=== PATIENT | male | born 1960 | race Caucasian/White ===

== ENCOUNTER → 2016-08-08 | Outpatient (CLI) | payer OTHER ==
[~2016-08-08] MED LIST: CIPRO500 MG PO; FLOMAX0.4 MG PO; LISINOPRIL5 MG PO; LYRICA100 MG PO; METFORMIN 500500 MG PO; METFORMIN HCL500 MG PO; MINOCYCLINE 5050 M1 PO; MOBIC15 MG PO; OXYCONTIN10 M1 PO; PERCOCET PO
== END ==
LOC: HYPER 07:05
DX: E11.621 Type 2 diabetes mellitus with foot ulcer (principal); L97.512 Non-pressure chronic ulcer of other part of right foot with fat layer exposed; L89.613 Pressure ulcer of right heel, stage 3; E11.622 Type 2 diabetes mellitus with other skin ulcer; L97.822 Non-pressure chronic ulcer of other part of left lower leg with fat layer exposed; L97.423 Non-pressure chronic ulcer of left heel and midfoot with necrosis of muscle; I87.2 Venous insufficiency (chronic) (peripheral); I10 Essential (primary) hypertension; Z79.84 Long term (current) use of oral hypoglycemic drugs; Z87.891 Personal history of nicotine dependence

== ENCOUNTER → 2016-08-23 | Outpatient (CLI) | payer OTHER | LOC: HYPER 07:08 | DX: E11.621 Type 2 diabetes mellitus with foot ulcer (principal); L97.821 Non-pressure chronic ulcer of other part of left lower leg limited to breakdown of skin; L97.421 Non-pressure chronic ulcer of left heel and midfoot limited to breakdown of skin; L97.511 Non-pressure chronic ulcer of other part of right foot limited to breakdown of skin; E11.69 Type 2 diabetes mellitus with other specified complication; I87.2 Venous insufficiency (chronic) (peripheral); Z79.84 Long term (current) use of oral hypoglycemic drugs; Z87.891 Personal history of nicotine dependence ==

== ENCOUNTER → 2016-11-13 | Outpatient (CLI) | payer OTHER | LOC: HYPER 07:05 | DX: E11.621 Type 2 diabetes mellitus with foot ulcer (principal); L97.512 Non-pressure chronic ulcer of other part of right foot with fat layer exposed; L89.893 Pressure ulcer of other site, stage 3; L02.416 Cutaneous abscess of left lower limb; I87.2 Venous insufficiency (chronic) (peripheral); I10 Essential (primary) hypertension; Z79.84 Long term (current) use of oral hypoglycemic drugs; Z89.411 Acquired absence of right great toe; Z87.891 Personal history of nicotine dependence ==

== ENCOUNTER → 2017-01-07 | Outpatient (CLI) | payer OTHER | LOC: HYPER 12-25 07:42 | DX: E11.621 Type 2 diabetes mellitus with foot ulcer (principal); I87.2 Venous insufficiency (chronic) (peripheral); L97.512 Non-pressure chronic ulcer of other part of right foot with fat layer exposed; L97.423 Non-pressure chronic ulcer of left heel and midfoot with necrosis of muscle; L89.893 Pressure ulcer of other site, stage 3; I10 Essential (primary) hypertension; Z79.84 Long term (current) use of oral hypoglycemic drugs; Z87.891 Personal history of nicotine dependence; Z89.411 Acquired absence of right great toe ==

== ENCOUNTER → 2017-04-30 | Outpatient (CLI) | payer OTHER | LOC: HYPER 04-29 13:41 | DX: E11.621 Type 2 diabetes mellitus with foot ulcer (principal); L97.512 Non-pressure chronic ulcer of other part of right foot with fat layer exposed; L89.893 Pressure ulcer of other site, stage 3; I87.2 Venous insufficiency (chronic) (peripheral); I10 Essential (primary) hypertension; Z79.84 Long term (current) use of oral hypoglycemic drugs; Z87.891 Personal history of nicotine dependence ==

== ENCOUNTER → 2017-05-02 | Outpatient (CLI) | payer OTHER ==
[2017-05-02 16:45] LABS: HEMATOCRIT 45.1 % (42.0-52.0); HEMOGLOBIN 15.2 gm/dL (14.0-18.0); MCH 30.2 pg (26.0-34.0); MCHC 33.6 g/dL (28.0-37.0); MCV 89.9 fL (80.0-100.0); RBC 5.02 mil/uL (4.50-6.00); RDW 13.3 % (10.5-14.5); WBC 10.7 thou/uL (4.0-11.0)
[2017-05-02 16:56] LABS: CALCIUM 9.1 mg/dL (8.5-10.1); CREATININE 1.1 mg/dL (0.7-1.3); POTASSIUM 4.5 mmol/L (3.5-5.1)
[2017-05-02 17:02] LABS: ALBUMIN 3.8 g/dL (3.4-5.0); TOTAL BILIRUBIN 0.5 mg/dL (<0.1-1.0); TOTAL PROTEIN 7.9 g/dL (6.4-8.2)
== END ==
LOC: HYPER 11:54 → RAD 12:50
PROVIDERS: Emergency Medicine Emergency Medical Services
DX: E11.621 Type 2 diabetes mellitus with foot ulcer (principal); I87.2 Venous insufficiency (chronic) (peripheral); L97.512 Non-pressure chronic ulcer of other part of right foot with fat layer exposed; E11.69 Type 2 diabetes mellitus with other specified complication; Z79.84 Long term (current) use of oral hypoglycemic drugs; Z87.891 Personal history of nicotine dependence

== ENCOUNTER → 2018-05-15 | Outpatient (CLI) | payer OTHER | LOC: HYPER 06:33 | DX: E11.621 Type 2 diabetes mellitus with foot ulcer (principal); L97.512 Non-pressure chronic ulcer of other part of right foot with fat layer exposed; I87.2 Venous insufficiency (chronic) (peripheral); L84 Corns and callosities; I10 Essential (primary) hypertension; Z89.411 Acquired absence of right great toe; Z79.84 Long term (current) use of oral hypoglycemic drugs; Z87.891 Personal history of nicotine dependence ==

== ENCOUNTER → 2018-06-12 | Outpatient (CLI) | payer OTHER | LOC: HYPER 07:08 | DX: T87.89 Other complications of amputation stump (principal); E11.621 Type 2 diabetes mellitus with foot ulcer; L97.512 Non-pressure chronic ulcer of other part of right foot with fat layer exposed; S90.221A Contusion of right lesser toe(s) with damage to nail, initial encounter; I87.2 Venous insufficiency (chronic) (peripheral); I10 Essential (primary) hypertension; Z79.84 Long term (current) use of oral hypoglycemic drugs; Z87.891 Personal history of nicotine dependence; X58.XXXA Exposure to other specified factors, initial encounter; Y93.89 Activity, other specified; Y92.89 Other specified places as the place of occurrence of the external cause; Y99.8 Other external cause status; Y83.5 Amputation of limb(s) as the cause of abnormal reaction of the patient, or of later complication, without mention of misadventure at the time of the procedure ==

== ENCOUNTER → 2018-09-08 | Outpatient (CLI) | payer OTHER | LOC: HYPER 08-07 06:46 | DX: E11.621 Type 2 diabetes mellitus with foot ulcer (principal); L97.526 Non-pressure chronic ulcer of other part of left foot with bone involvement without evidence of necrosis; L97.512 Non-pressure chronic ulcer of other part of right foot with fat layer exposed; S91.104D Unspecified open wound of right lesser toe(s) without damage to nail, subsequent encounter; S90.821D Blister (nonthermal), right foot, subsequent encounter; I10 Essential (primary) hypertension; I87.2 Venous insufficiency (chronic) (peripheral); Z79.84 Long term (current) use of oral hypoglycemic drugs; Z87.891 Personal history of nicotine dependence; Z89.419 Acquired absence of unspecified great toe; X58.XXXD Exposure to other specified factors, subsequent encounter ==

== ENCOUNTER → 2018-10-14 | Outpatient (CLI) | payer OTHER | LOC: HYPER 06:53 | DX: E11.621 Type 2 diabetes mellitus with foot ulcer (principal); L97.522 Non-pressure chronic ulcer of other part of left foot with fat layer exposed; L97.512 Non-pressure chronic ulcer of other part of right foot with fat layer exposed; E11.40 Type 2 diabetes mellitus with diabetic neuropathy, unspecified; I87.2 Venous insufficiency (chronic) (peripheral); L84 Corns and callosities; I10 Essential (primary) hypertension; Z87.891 Personal history of nicotine dependence; Z79.84 Long term (current) use of oral hypoglycemic drugs ==

== ENCOUNTER → 2018-11-10 | Outpatient (CLI) | payer OTHER | LOC: HYPER 06:50 | DX: E11.621 Type 2 diabetes mellitus with foot ulcer (principal); L97.522 Non-pressure chronic ulcer of other part of left foot with fat layer exposed; L97.512 Non-pressure chronic ulcer of other part of right foot with fat layer exposed; I87.2 Venous insufficiency (chronic) (peripheral); I10 Essential (primary) hypertension; L84 Corns and callosities; Z87.891 Personal history of nicotine dependence; Z79.84 Long term (current) use of oral hypoglycemic drugs ==

== ENCOUNTER → 2018-12-15 | Outpatient (CLI) | payer OTHER | LOC: HYPER 06:42 | DX: E11.621 Type 2 diabetes mellitus with foot ulcer (principal); L97.512 Non-pressure chronic ulcer of other part of right foot with fat layer exposed; L97.522 Non-pressure chronic ulcer of other part of left foot with fat layer exposed; S90.22 Contusion of lesser toe with damage to nail; I87.2 Venous insufficiency (chronic) (peripheral); I10 Essential (primary) hypertension; Z87.891 Personal history of nicotine dependence; Z79.84 Long term (current) use of oral hypoglycemic drugs; X58.XXXD Exposure to other specified factors, subsequent encounter ==

== ENCOUNTER → 2019-01-19 | Outpatient (CLI) | payer OTHER | LOC: HYPER 06:45 | DX: T87.89 Other complications of amputation stump (principal); E11.621 Type 2 diabetes mellitus with foot ulcer; L97.522 Non-pressure chronic ulcer of other part of left foot with fat layer exposed; L97.512 Non-pressure chronic ulcer of other part of right foot with fat layer exposed; E11.40 Type 2 diabetes mellitus with diabetic neuropathy, unspecified; I87.2 Venous insufficiency (chronic) (peripheral); L84 Corns and callosities; I10 Essential (primary) hypertension; Z87.891 Personal history of nicotine dependence; Z79.84 Long term (current) use of oral hypoglycemic drugs; Y83.5 Amputation of limb(s) as the cause of abnormal reaction of the patient, or of later complication, without mention of misadventure at the time of the procedure ==

== ENCOUNTER → 2019-02-23 | Outpatient (CLI) | payer OTHER | LOC: HYPER 02-16 06:29 | DX: E11.621 Type 2 diabetes mellitus with foot ulcer (principal); L97.512 Non-pressure chronic ulcer of other part of right foot with fat layer exposed; L97.522 Non-pressure chronic ulcer of other part of left foot with fat layer exposed; I87.2 Venous insufficiency (chronic) (peripheral); I10 Essential (primary) hypertension; L84 Corns and callosities; Z87.891 Personal history of nicotine dependence; Z79.84 Long term (current) use of oral hypoglycemic drugs; Z89.411 Acquired absence of right great toe ==

== ENCOUNTER 2019-08-18 16:42 | Inpatient (IN) | payer OTHER ==
[~2019-08-18] VITALS: Ht 177.8 cm; Wt 100.2 kg
[~2019-08-18 16:42] MED LIST changes: -MELOXICAM15 MG PO; -PERCOCET 10-321 EAC1 PO
[2019-08-18 17:11] VITALS: BP 121/51
[2019-08-18] MEDS ORDERED: PERCOCET 10-321 EAC1 PO (18:32)
[2019-08-18] MEDS ORDERED: MELOXICAM15 MG PO (18:35)
--- NOTE | 2019-08-18 20:07 | NUR ---
[address] Tom, pt arrived via wheelchair- transferred to bed safely. Dr Tom called re: pt's arrival in herzog- a/w orders, no reply. Medication reconcilation done, a/w physician to review medications. Admission education, history and assessment done. Wound photo taken, attached to chart; wound dressing done. Up ad du. Independent with ADLs. On room air. Vital signs stable. Diet ordered as carb controlled while waiting for physician's order sets. Paged Dr Tom again to obtain orders, still no reply. Pt had a bowel movement today, continent of urine and stool, call appropriately. Paged Dr Tom again to obtain admission orders for patient, still no reply. airplane flight attendant supervisor informed re: no admission orders from physician and patient
[2019-08-18 20:42] VITALS: BP 144/83
[2019-08-18 20:52] LABS: HEMATOCRIT 42.9 % (42.0-52.0); HEMOGLOBIN 14.1 gm/dL (14.0-18.0); MCH 30.4 pg (26.0-34.0); MCHC 32.8 g/dL (28.0-37.0); MCV 92.7 fL (80.0-100.0); PLATELET COUNT 206 thou/uL (150-400); RBC 4.63 mil/uL (4.50-6.00); RDW 14.2 % (10.5-14.5); WBC 5.1 thou/uL (4.0-11.0)
[2019-08-18 21:12] LABS: APTT 40.9 Seconds (24.5-32.8); INR 1.1; PROTIME 11.3 Seconds (9.3-11.4)
[2019-08-18 21:32] LABS: ALBUMIN 3.3 g/dL (3.4-5.0); CALCIUM 8.8 mg/dL (8.5-10.1); CREATININE 1.3 mg/dL (0.7-1.3); MAGNESIUM 2.1 mg/dL (1.8-2.4); POTASSIUM 3.9 mmol/L (3.5-5.1); TOTAL BILIRUBIN 0.2 mg/dL (<0.1-1.0); TOTAL PROTEIN 7.2 g/dL (6.4-8.2)
[2019-08-18 21:47] LABS: ABSOLUTE NEUTROPHILS 3.5 thou/uL (1.4-8.2)
[2019-08-18 21:48] LABS: PLATELET ESTIMATE NORMAL
--- NOTE | 2019-08-19 03:43 | NUR ---
patient aox4 makes needs known.patient has right leg dressing c/d/i. patient has skin grafts on ble. patient is up at du. patient uses urinal.patient has been npo sinces midnight. patient ua collected and taken to lab, awaiting for results. pain controlled this shift. patient in bed asleep at this time breathing regular and unlaboured.
[2019-08-19 05:44] LABS: HEMATOCRIT 44.2 % (42.0-52.0); HEMOGLOBIN 14.4 gm/dL (14.0-18.0); MCHC 32.6 g/dL (28.0-37.0); MCV 92.1 fL (80.0-100.0); PLATELET COUNT 230 thou/uL (150-400); RDW 14.1 % (10.5-14.5); WBC 5.8 thou/uL (4.0-11.0)
[2019-08-19 05:53] LABS: CALCIUM 8.6 mg/dL (8.5-10.1); MAGNESIUM 2.1 mg/dL (1.8-2.4); POTASSIUM 4.4 mmol/L (3.5-5.1)
[2019-08-19 07:59] VITALS: BP 139/80
[2019-08-19 08:40] LABS: ABSOLUTE NEUTROPHILS 4.4 thou/uL (1.4-8.2); PLATELET ESTIMATE NORMAL
--- NOTE | 2019-08-19 09:17 | NUR ---
Nutrition: pt admitted with cellulitis right foot with underlying hx of pyoderma. PMH: DM, right toes amputation, HTN. BG 112. Currently NPO for possible procedure, carb controlled diet yesterday. Pt reports good BG control and no diet related questions. States last A1C 6.0. Good appetite. Drinks 1-2 Premier protein daily at home, aware of protein needs/sources. Will offer Ensure max once daily when diet advances. Stable weight. Low nutrition risk.
--- NOTE | 2019-08-19 10:31 | NUR ---
ORDERS RECEIVED FOR EVAL AND TREAT. PER NURSING NOTES THE Pt IS UP AD JIMMY. SPOKE WITH Pt WHO STATES HE IS HAVING NO DIFFICULTY WITH HIS MOBILITY, DOES NOT FEEL WEAK OR OFF BALANCE. Pt DECLINING FORMAL P.T. EVAL
--- NOTE | 2019-08-19 11:55 | NUR ---
PT ADMITTED RELATED TO CELLULITIS R FOOT. CM REVIEWED CHART AND SPOKE WITH CARE TEAM. CM MET WITH PT AT BEDSIDE THIS DAY. PT IS A&O X4. CM ROLE INTRODUCED. PT INDICATED HE LIVES IN A HOUSE WITH HIS SPOUSE WITH 2 STEPS TO ENTER AND NO STEPS INSIDE. 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 PT INDICATED HE HAD [facility] IN THE PAST BUT THAT HE HAD BEEN DOING OP WOUND CARE HERE IN [facility] CONTRACT PROJECT MANAGER. PT INDICATED THAT HE HOPES TO BE ABLE TO RETURN HOME ONCE MEDICALLY STABLE. CM TO FOLLOW INDICATED WITH DC PLANNING.
--- NOTE | 2019-08-19 12:40 | NUR ---
WOUND CARE NOTE ROUNDING W/ DR ASHUTOSH FOWLER, R FOOT WOUND ASSESSED, NONVIABLE WHITE TISSUE C[facility] OF WOUND BED, PHOTO DONE YESTERDAY, AWAITING RECOMMENDATIONS DR THOMAS POSSIBLE SURGERY RECOMMENDATIONS AWAITING ORTHO SURGERY CONSULT, MRI, REDRESSED W/ DRY GAUZE, [facility] RECRUITER AWARE
--- NOTE | 2019-08-19 13:55 | NUR ---
PATIENT DECLINED FORMAL OT EVALUATION, PATIENT STATED HE AND WITH HIS 'S ASSIST AND STATED HE DOES NOT WANT TO CHANGE IT OR RECEIVE INPUT.
[2019-08-19 15:00] VITALS: BP 157/83
--- NOTE | 2019-08-19 16:53 | NUR ---
Assumed care to patient 0910 from the previous shift. Received pt awake on bed, due medications given as prescribed. On nothing per orem- pt informed and aware, mouth care rendered. On room air. Vital signs stable. On blood sugar monitoring, with sliding scale insulin prescribed. Assisted in ADLs. Continent of B/B. Pt seen by Dr Christianson this morning, MRI of R foot ordered, MRI checklist completed and sent. MRI staff called and said MRI undergoing maintenance- Dr Hahn, Dr Christianson and Answering service for Dr Cook informed, pt updated as well. Dr Christianson called and said he was able to contact Dr Biswas and said to keep patient on NPO- patient updated. Pt's called and got upset because pt is still on NPO, explained to her what the physician has been telling me and informed her that patient has been updated about everything is happening. Dressing on R foot changed by wound team during their rounds this AM. Dr Cook seen and assessed the patient, talked to physician as well and upset since no imaging has been done yet they put pt on NPO, diet resumed for the patient, dietary brought a late tray to patient and updated him re: physician's orders. Dr Cook informed again that the earliest MRI could be done is tomorrow due to maintainance, Xray of foot ordered. 1648- Called radiology re: update for xray to be done, as per xray staff they will be checking orders and will call back. Pt with NS at 75cc/hr, infusing well at R hand, on IV antibiotics. Tolerated lunch; no nausea, no vomiting and no abdominal pain noted.
[2019-08-19 19:44] VITALS: BP 154/74
--- NOTE | 2019-08-20 01:27 | NUR ---
PATIENT AOX4 MAKES NEEDS MADE.PATIENT HAS RLE CELLULITIS, PATIENT HAS A DRESSING ON RIGHT FOOT IS C/D/I. PAIN CONTROLLED THIS SHIFT. PATIENT IS UP AT JIMMY. PATIENT IN BED ASLEEP AT THIS TIME BREATHING REGULAR AND UNLABOURED.
[2019-08-20 08:46] VITALS: BP 127/59
--- NOTE | 2019-08-20 10:23 | HC ---
[facility] [place] [address] CONSULTATION Name: ACNA KOEHLER Room #: 455-P ADM IN M.R.#: [id number] Admission: 08/18/19 Attend Phys: Josh Hahn Discharge: Date of : 58 Report #: [id number] THIS REPORT FOR: //name// CC: Josh Chopraen Chela DATE OF SERVICE: 08/19/2019 CHIEF COMPLAINT: Right forefoot infection. HISTORY OF PRESENT ILLNESS: This 59-year-old gentleman has a long history of severe vascular and soft tissue problems involving the right foot. He has had debridement and skin grafts in the lower leg and calf region. He has had previous surgical debridement and amputation of the great toe and I believe some portions of the second toe in the past. He notes he has been seen regularly at the [facility]. He notes a chronic callus formation over the plantar aspect of the forefoot. 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 He notes he has had problems with callus formation and does regular callus trimming on his own at home. He also was seen at [facility] for custom shoe wear to help to avoid pressure sores. Unfortunately, after trimming a callus one week ago, he developed a small open wound, which advanced to redness and swelling consistent with cellulitis. He has been seen at the W[facility] Care Clinic and has been started on antibiotics. I am uncertain with regard to culture results. He is admitted at this time for IV antibiotics. At the time of my evaluation, there is not a note for wound care on the chart, so I am uncertain of his recent history. I do not find any x-rays of the foot. I note that an MRI has been ordered, but the MRI machine is currently unavailable or not working and so that may take another 24-48 hours before we get that study. In discussing this with the patient, he notes that he is only mildly uncomfortable. He feels his symptoms may be improving slightly since he has been off the foot and has been started on IV antibiotics. The right foot reveals previous amputation of the great toe with some deformity at the distal metatarsal level. He seems to still have remaining third, fourth and fifth toes. I believe he has had a previous amputation of the second toe, but there is significant deformity in this region. There is a bony prominence at the plantar aspect, which seems to be at the second metatarsal head region. There appears to be an old callus there, which has been recently trimmed and a small wound. There is no obvious purulence, but there is some redness or warmth consistent with cellulitis. [address] [address] CONSULTATION Name: ANCA KOEHLER Room #: 455-P ADM IN M.R.#: [id number] Admission: 08/18/19 Attend Phys: Josh Hahn Discharge: Date of : 58 Report #: [id number] At this point, based upon the clinical exam, I suspect he does have significant problems with chronic pressure sores given the bony prominence at the second metatarsal head. Currently, he has a small wound with surrounding cellulitis. There is no clinical evidence of deep abscess or osteomyelitis, but I think further evaluation with both x-rays and MRI would be appropriate. We have discussed that the current infection may be managed with IV antibiotics and the rest, elevation. In the long run, he is going to have ongoing problems with callus formation, pressure sores, eventually some revision of his forefoot amputation may be necessary to try to prevent further bony prominence and soft tissue damage. Certainly if the MRI shows evidence of current osteomyelitis, then a more aggressive debridement might be necessary. For now, I suspect this is not an osteomyelitis, but rather a cellulitis and will probably improve with time and elevation and antibiotics. I will follow along with you and we will comment further once we have x-rays and MRI available for review. <ELECTRONICALLY SIGNED> By: Avelino Cook MD 08/20/19 1023 1310 2116 Avelino Cook MD /nt
--- NOTE | 2019-08-20 12:41 | NUR ---
ORTHO INDICATED THAT THEY ANTICIPATE PT GOING TO THE OR TOMORROW FOR POSSIBLE MID FOOT AMPUTATION. CM TO FOLLOW INDICATED WITH DC PLANNING.
[2019-08-20 14:31] VITALS: BP 116/60
--- NOTE | 2019-08-20 14:35 | HC ---
[facility] [place] [address] CONSULTATION Name: RODOANCA D Room #: 455-P ADM IN M.R.#: [id number] Admission: 08/18/19 Attend Phys: Josh Hahn Discharge: Date of : 58 Report #: [id number] THIS REPORT FOR: //name// CC: Josh York DATE OF SERVICE: 08/19/2019 WOUND CARE CONSULTATION REFERRING PHYSICIAN: Dr. Tom. CHIEF COMPLAINT: Diabetic foot ulcer. HISTORY OF PRESENT ILLNESS: This is a 59-year-old white male who I have been following in the wound clinic for chronic ulcer on the plantar aspect of his right foot over the second metatarsal head. The patient states that over the past several months, the wound had actually been doing quite well, but unfortunately in just the past week, he started having increased swelling, redness, drainage coming from the wound. The patient states the night before admission, the patient actually was having fevers and chills. The patient states that because of his neuropathy, he has minimal pain associated with this. The patient states that once he started the increased drainage. He started himself on Baxdela antibiotic that he has been on intermittently for the past several months. The patient denies any other associated wounds at this time. It was felt that due to the increased drainage and swelling and on clinical exam, his wound probed to bone, the patient should be admitted for IV antibiotics, imaging of the foot to rule out an abscess and further evaluation by Infectious Disease as well as Orthopedics. PAST MEDICAL HISTORY: Significant for longstanding diabetes mellitus, previous surgery on the right foot including a right great and second toe amputation as well as surgical revision, chronic arthritis, history of pyoderma gangrenosum remotely, hypertension. The patient has chronic back pain with chronic pain issues. CURRENT MEDICATIONS: Multiple, I reviewed the patient's medication list, does include Lyrica. DRUG ALLERGIES: NEOMYCIN AND BACTRIM. SOCIAL HISTORY: The patient has a remote history of smoking. Does not drink alcohol. FAMILY HISTORY: Not pertinent to current medical condition. [facility] [address] [place] [address] CONSULTATION Name: ANCA KOEHLER Room #: 455-P [facility] IN ..#: [id number] Admission: 08/18/19 Attend Phys: Josh Hahn Discharge: Date of : 58 Report #: [id number] REVIEW OF SYSTEMS: CONSTITUTIONAL: The patient had fevers and chills prior to coming into the hospital, but denies any in the past 24 hours. EYES: No complaints. ENT: No complaints. CARDIAC: The patient denies chest pain, palpitations, or peripheral edema. RESPIRATORY: The patient denies shortness of breath, cough, or wheezes. GASTROINTESTINAL: The patient denies nausea, vomiting, or abdominal pain. GENITOURINARY: The patient denies urgency or frequency. MUSCULOSKELETAL: The patient has chronic back pain. SKIN: There is a chronic ulceration on the plantar aspect of his right foot. PHYSICAL EXAMINATION: VITAL SIGNS: Temperature 37.3, pulse 51, respirations 18, and BP 154/74. GENERAL: This is an alert and oriented x 3, pleasant white male who is in no obvious distress. HEENT: Normocephalic, atraumatic. Mucous membranes are moist. Pupils are round. Sclerae white. NECK: Supple, nontender. LUNGS: Clear. HEART: Regular. ABDOMEN: Soft, nontender. EXTREMITIES: The patient moves all extremities without difficulty. Distal pulses are otherwise intact. Evaluation of the plantar aspect of right foot reveals a chronic ulceration over the second metatarsal head, which probes to bone. There moderate amount of bloody drainage, but no actual pus. There is increased swelling of the foot itself, which is tender along the plantar aspect without actual fluctuance. The area does have mild warmth and increased erythema. NEUROLOGIC: Cranial nerves 2-12 grossly intact. Motor and sensory grossly intact. LABORATORY DATA: White count 5.1, hemoglobin 14.1. Albumin is 3.3. MRI of the foot is pending. X-ray of the right foot reveals extensive soft tissue swelling in the forefoot. Post-surgical changes are noted. MRI is recommended for evaluation of osteomyelitis. MRI once again is pending. IMPRESSION: 1. Chronic ulceration, plantar aspect of right foot over the metatarsal head, concerning for underlying osteomyelitis and possible abscess. 2. Diabetes mellitus. 3. Remote history of pyoderma gangrenosum. 4. Chronic back pain with chronic opioid usage. 5. Protein-calorie malnutrition -- mild. Albumin 3.3. PLAN: At this time, Orthopedics has been consulted as is the wound care team. [address] [address] CONSULTATION Name: ANCA KOEHLER Room #: 455-P [facility] IN M.R.#: [id number] Admission: 08/18/19 Attend Phys: Josh Hahn Discharge: Date of : 58 Report #: [id number] We will continue to follow the patient. We will pack the wound with silver alginate, covers this with an ABD. An MRI once again has been ordered and is pending. IV antibiotics have been started, vancomycin and Zosyn. We will continue with his pain medicines as per his home regimen. We will maximize his oral protein supplementation for continued healing. Continue all his other current medications and continue to follow the patient. <ELECTRONICALLY SIGNED> By: Joseph Christianson MD 08/20/19 1435 0802 0825 Joseph Christianson MD /chelo
[2019-08-20 19:22] VITALS: BP 125/73
--- NOTE | 2019-08-20 19:50 | NUR ---
PT HAD MRI THIS AM. WILL HAVE SURGERY 08/[address] HERRING. TO BE NPO AT MIDNIGHT TONIGHT. PT UP AD JIMMY IN ROOM. DRESSING CHANGE COMPLETE. IV FLUIDS AND ABX INFUSING. AT BEDSIDE THROUGH OUT THE DAY.
[2019-08-21 00:42] VITALS: BP 114/64
[2019-08-21 05:08] LABS: HEMOGLOBIN 14.4 gm/dL (14.0-18.0); MCH 30.1 pg (26.0-34.0); MCHC 32.6 g/dL (28.0-37.0); MCV 92.2 fL (80.0-100.0); RBC 4.77 mil/uL (4.50-6.00); RDW 14.6 % (10.5-14.5); WBC 5.2 thou/uL (4.0-11.0)
[2019-08-21 05:22] LABS: CALCIUM 8.4 mg/dL (8.5-10.1); PHOSPHORUS 3.9 mg/dL (2.5-4.9)
--- NOTE | 2019-08-21 06:26 | NUR ---
PT AOX4. PT REPORTS PAIN IN RIGHT FOOT. PT RECEIVING SCHEDULED PO OXY, PRN IV MORPHINE Q4HR, AND PRN PO APAP Q4HR. PT PREFERS TO REST IN RECLINING CHAIR. STBA WHEN AMBULATING AND TRANSFERRING. PT TOLERATED PO INTAKE UNTIL MIDNIGHT, NPO AT 0000 DUE TO ANTICIPATION OF AMPUTATION SURGERY. PT , RATNA AT BEDSIDE. ENCOURAGED PT AND PT TO NOTIFY STAFF FOR ALL NEEDS. CALL LIGHT WITHIN REACH. WILL CONTINUE TO MONITOR.
[2019-08-21 07:27] VITALS: BP 102/66
[2019-08-21 12:09] VITALS: BP 110/51
--- NOTE | 2019-08-21 12:11 | O ---
[facility] [place] [address] OPERATIVE REPORT Name: ORDOANCA Estela Room #: 455-P ADM IN M.R.#: [id number] Admission: 08/18/19 Attend Phys: Josh Hahn Discharge: Date of : 58 Report #: [id number] THIS REPORT FOR: //name// CC: Josh Chopraen Chela DATE OF SERVICE: 08/21/2019 PREOPERATIVE DIAGNOSIS: Infected right forefoot with osteomyelitis. POSTOPERATIVE DIAGNOSIS: Infected right forefoot with osteomyelitis. PROCEDURE: Mid foot amputation, right foot. 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 He has had chronic problems with lower extremity vascular and soft tissue disease. He has a history of pyoderma gangrenosum. He has had multiple partial amputations of the right foot in the past. Recently, he has developed increased drainage and MRI suggest osteomyelitis of several of the remaining metatarsals. There was no evidence of an abscess and the tarsal level appears to be intact and stable without significant involvement. Given these findings, we have elected to go ahead with a more proximal mid foot amputation at the tarsometatarsal joint level. DESCRIPTION OF PROCEDURE: The patient was taken to the operating room where he was placed under general anesthesia. He was already on an antibiotic regimen. The right lower leg, foot, and ankle were meticulously prepped and draped. A thigh tourniquet was inflated to 300 mmHg. A fishmouth shaped skin incision was made, preserving as much dorsal and plantar flap as possible. This was made at the level to exclude an area of callus and sinus tract drainage distally near the head of the second metatarsal. The dissection was then carried sharply down to bone and traced subperiosteally back along each of the metatarsals to their base. They were excised along with the remaining toes and soft tissues, which were passed off the field. The bone of the remaining tarsals particularly at the medial border was still rather prominent. These were shortened slightly with an oscillating saw and rounded to avoid any bony prominences. Once the bones were shaped and contoured, there appeared to be a very satisfactory stump with adequate soft tissue for loose gentle closure. The wound was aggressively irrigated. There was no evidence of purulence and no necrotic or devascularized tissue. The tourniquet was deflated. A very good blood supply throughout both the dorsal and plantar flap was noted. Hemostasis was accomplished with gentle use of cautery and gentle pressure over several minutes. The flaps were further copiously irrigated. I felt the wound seems clean and feel that a loose closure over a drain is probably an acceptable option. This was accomplished with a few [facility] [address] [place] [address] OPERATIVE REPORT Name: ANCA KOEHLER Room #: 455-P [facility] IN M.R.#: [id number] Admission: 08/18/19 Attend Phys: Josh Hahn Discharge: Date of : 58 Report #: [id number] loose 3-0 Monocryl sutures to close the space. A single Hemovac was placed to the wound, which should also help to close down the deeper space. The skin was then closed using skin mitzi and multiple 3-0 nylon sutures. A very satisfactory loose closure was accomplished. The wound appears to be dry at the conclusion without any ongoing significant bleeding. The skin edges, however, remained pink and well perfused. A soft, very gently compressive dressing was then applied. The patient was then awakened and returned to recovery room in good condition. <ELECTRONICALLY SIGNED> By: Avelino Cook MD 08/21/19 1211 1043 1112 Avelino Cook MD /nt
[2019-08-21 14:30] VITALS: BP 116/70
--- NOTE | 2019-08-21 15:25 | NUR ---
Received awake on bed. On nothing per orem- patient informed and aware, mouth care done. On room air. Vital signs stable. Assisted in ADLs. With dressing at R foot- C/D/I. With at the bedside. On blood sugar monitoring- taken and recorded accordingly. With NS at 75cc/hr, infusing well at R hand. Up ad du. Pt scheduled for R midfoot amputation- consent to be signed, asked the patient if surgeon has explained the procedure to him, pt said no- informed him that I will let OR staff know so surgeon can explain procedure to him prior to surgery. Report given to Pre-op nurse. Pt brought down via bed at 8:30am. Pt came back to herzog at 1300, transferred to bed safely. On clear liquids- beef broth and jello given. Patient complaining of 10/10 pain, recovery room nurse informed me pt received Fentanyl and Dilauded downstairs. PRN IV Morphine given as prescribed. Pt re-assessed- he said pt is still 10/10, no pain relief from pain meds given- Dr Christianson rounded on patient and ordered a one-time dose of 2mg Morphine, informed him that pt just had a 4mg dose 10mins ago, to still give medications. Pt is dozing on and off, patient's insisting that pt's pain scale is 10/10 rather that letting patient answer my pain relief assessment. Dr Hahn informed re: no pain relied, he modified patient's pain meds- pt informed and aware re: doctor's orders.
[2019-08-21 19:10] VITALS: BP 112/73
[2019-08-21 23:47] VITALS: BP 101/56
[2019-08-22 04:12] VITALS: BP 99/57
[2019-08-22 07:05] VITALS: BP 110/56
--- NOTE | 2019-08-22 07:27 | NUR ---
pt a&ox4. uses the urinal overnight. hemovac in place and patent. no output noted. pain controlled with current regimen. pt stated concern about being anxious and would like to have something for anxiety and melatonin for the coming nights if he does't get discharged today. reports off to day shift nurse. lisinipril held last night for low BP. no s/s of distress. right foot dressing dry clean and intact. will cont to monitor
--- NOTE | 2019-08-22 10:22 | NUR ---
Received awake on bed. Due medications given as prescribed, able to swallow meds w/o difficulty. On room air. Vital signs taken and recorded accordingly. A+Ox4. On carb controlled diet; tolerating well; no nausea, no vomiting and no abdominal pain noted. On blood sugar monitoring- taken and recorded accordingly; with insulin sliding scale prescribed. Continent of B/B. With at bedside. Post op Day 1 Rt midfoot amputation, dressing C/D/I- hemovac in place- output measured and recorded accordingly. Pt asked if he can resume his flomax, and have anti-anxiety and sleeping tablets prescribed- Dr Hahn informed, will see patient for prior to prescribing meds. With SL at L hand- intact and flushing well- on IV antibiotics.
[2019-08-22 14:39] VITALS: BP 122/47
[2019-08-22 19:29] VITALS: BP 100/58
--- NOTE | 2019-08-23 04:36 | NUR ---
Pt. rested quietly at intervals during the night when checked on during frequent rounds. Dressing to his right lower extremity is dry and intact. Hemovac to the site is also intact. Pain meds given for c/o pain to his right lower extremity (see emar) with some relief noted. Spouse at the bedside all shift.
[2019-08-23 08:00] VITALS: BP 142/64
--- NOTE | 2019-08-23 10:31 | EKG ---
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
[2019-08-23 15:00] VITALS: BP 152/69
--- NOTE | 2019-08-23 18:22 | NUR ---
PT A&OX4, VSS, PAIN IN RIGHT FOOT. PAIN MEDICATION GIVEN. FOOT REMAINS WRAPPED IN DRESSING, C/D/I. PATIENT TOLERATING REG DIET. HEMOVAC IN PLACE AND SMALL AMOUNT OF SEROSANGUINEOUS DRAINAGE TAKEN OFF. NO SIGNS OF DISTRESS. PATIENTS HR DID DROP DOWN TO 30 APPROX. 0900. DOCTOR AWARE AND EKG ORDERED. WILL CONTINUE TO MONITOR.
[2019-08-23 19:15] VITALS: BP 153/79
[2019-08-23 21:10] VITALS: BP 184/94
--- NOTE | 2019-08-23 22:55 | NUR ---
ASSUMED CARE AROUND 1915. AXOX3. HR 35 NOTED WHILE TAKING VS. FULL 60SEC AUSCULTATION PERFORMED AND HR35 CONFIRMED. PER PT, HE'S HAD HAS CHRONIC BRADYCARDIA, BUT IT HAS NOT BEEN IN THE 30s. CALLED TRUDI PRASAD AND OBTAINED AN ORDER TO TRANSFER PT TO CARDIAC MONITORING FLOOR. CALLED MANAGER PRIMARY RENATA, RECEIVED A ROOM NUMBER AND REPORT CALLED TO ROSY KING ON 2N. PT WAS TRANSFERRED ON BED IN SAFE CONDITION WITH MANAGER PRIMARY. ALL BELONINGS SENT WITH PT INCLUDING HIS BROWN WALLET. RATNA WAS CALLED AND NOTIFIED OF TRANSFER.
[2019-08-24 00:34] VITALS: BP 148/58
--- NOTE | 2019-08-24 03:01 | NUR ---
PT TX TO ROOM 209, DRESG CDI WITH HEMOVAC IN PLACE, VSS HR SB 40 TO 50'S DROPS TO 30'S OCCASIONALLY, PRN PAIN MED GIVEN, PT VOIDING PER URINAL, AWOKE TO USE URINAL AND PULLED OUT HEMOVAC, DRESSING REMAINS CDI, WILL CON'T TO MONITOR PER PPOC.
[2019-08-24 04:06] VITALS: BP 135/57
[2019-08-24 08:07] VITALS: BP 147/70
[2019-08-24] MEDS ORDERED: FLOMAX0.4 MG PO (09:04)
--- NOTE | 2019-08-24 11:07 | NUR ---
PT'S HR DOWN TO 35, PT NOT AWARE OF IT AND WHEN ASKED BY ME STATES, "BEEN LIKE THAT ALL OF MY LIFE." DR ARIAS CALLED AND RESPONDED, "IT'S FINE. HE'S ASYMPTOMATIC AND HIS BP IS FINE." PT'S IN ROOM AND CONFIRMED THAT HIS HEART RATE HAS "BEEN LOW EVER SINCE I'VE KNOWN HIM." SHE IS ALSO AWARE THAT HE MAY BE DISCHARGED TODAY AND SAYS SHE MAY NOT BE ABLE TO TRANSPORT HIM HOME UNTIL TOMORROW BECAUSE SHE NEEDS TO GET THE HOUSE READY FOR HIS ARRIVAL AND NEEDS TIME TO MOVE THE MEDICAL EQUIPMENT FROM THE BASEMENT TO HIS ROOM. SHE HAS "CHRONIC PAIN" AND IT WILL TAKE A WHILE TO MOVE IT. WHEN OFFERED TO FIND TRANSPORT TO TAKE HIM HOME, SHE REFUSED, AND IS ADAMANT THAT SHE MUST DO IT HERSELF.
--- NOTE | 2019-08-24 15:06 | NUR ---
FAXED REFERRAL TO [facility] SPOKE WITH PETAR IN INTAKE SHE RECEIVED REFERRAL AND WILL REVIEW PT TO DC TODAY TO HOME. FAXED REFERRAL TO [facility] SPOKE WITH CHESTER AND THEY ARE OUT OF NETWORK WITH PT'S INSURANCE. FAXED REFERRAL TO [facility] SPOKE WITH ALFREDO AND SHE WILL REVIEW REFERRAL AND THEY DO TAKE PT'S INSURANCE.
--- NOTE | 2019-08-24 15:18 | NUR ---
VASCULAR ACCESS CONSULTED FOR PICC PLACEMENT. DISCUSSED BENEFITS AND RISK WITH PT, VERBALIZED UNDERSTANDING. ORDER,HISTORY, COSENT AND LABS VERIFIED. OLLIE BASILIC WAS WIDELY PATENT WITH USG, 4FR SL POWER PICC TRIMMED TO 45CM INSERTED TO 0CM. STAT CXR ORDERED. PT TOLERATED WELL
--- NOTE | 2019-08-24 15:44 | NUR ---
cxr confirmed picc placement in svc. picc released for immediate use per protocol to jonny luciano
[2019-08-24 16:17] VITALS: BP 142/74
--- NOTE | 2019-08-24 16:38 | NUR ---
sp with phys who reports awaiting ID to see to determine need for IV antibiotics at home. Sp with patient who reports he has done IV antibiotics at home in past and familiar with process. he is aware that HH will not come every day for infusion. ID phys saw patient and instructed with orders for home infusion vanco. Sent referral to [facility] who does not accept insurance. Referral to [facility]. Patient still in need to meet deductable. [facility] sp with at home and reviewed insurance coverage she is agreeable to infusion at home. Discussed with dc today. Both RN and SW sp with multiple times today. tearful reports she has bad back. She spent all day here yesterday and she is exhausted. She cannot handle dc home today. She cannot transport patient after dark. she also would not allow casemgt to vouch for van transport home. On second phone call to she reports she is just not picking him up today, she cannot do this. she is crying and very upset. Sp with Administration Natalya Xiao who reports patient to de in am at wifes request. Updated who was grateful. [facility] updated. Patient rec [facility] in past and patient agreeable to use [facility] again. Updated HH of de in am. [facility] liason to meet with tomorrow at 10:30.
[2019-08-24 19:55] VITALS: BP 147/97
--- NOTE | 2019-08-25 05:02 | NUR ---
ASSUMED PT CARE AT AROUND 1900, PT IS ALERT AND ORIENTEDX4, ASSESSMENTS CHARTED, BRADYCARDIA ON THE MONITOR, CARDIOLOGY TO SEE PT IN THE AM, DRESSING TO THE RIGHT FOOT IS DCI, BS STABLE, VITALS STABLE, ON IV ABT, RSETED WELL, WILL CONTINUE TO MONITOR
[2019-08-25 05:04] VITALS: BP 135/78
--- NOTE | 2019-08-25 08:00 | EKG ---
[address] [address] ELECTROCARDIOGRAM REPORT Name: ANCA KOEHLRE Room #: 209-P ADM IN M.R.#: [id number] Admission: 08/18/19 Attend Phys: Josh Hahn Discharge: Date of : 58 Report #: [id number] THIS REPORT FOR: //name// [facility] Test Date: 2019-08-24 Test Time: 17:56:41 Pat Name: NACA KOEHLER Department: Room: 209 P Gender: M Traveling Inventory Associate: Clarita BURCH : 1960 Requested By: Marilou Liao Order Number: [id number] MD: Anthony Mccormack Measurements Intervals Kirby Rate: 63 P: 52 RI: 164 QRS: 59 QRSD: 115 T: 17 QT: 446 QTc: 457 Interpretive Statements Sinus bradycardia Multiple ventricular premature complexes Nonspecific intraventricular conduction delay Minimal ST depression, inferior leads Compared to ECG 08/23/2019 08:21:09 Electronically Signed On 08-25-2019 7:59:48 [employer] PRESIDENT [employer]ES by Anthony Mccormack [email or web address] <ELECTRONICALLY SIGNED> By: Anthony Mccormack MD 08/25/19 0759 1756 175 Anthony Mccormack MD /NADEEM
[2019-08-25 08:30] VITALS: BP 146/72
[2019-08-25 09:01] VITALS: BP 146/72
[2019-08-25 09:02] VITALS: BP 146/72
[2019-08-25 11:21] VITALS: BP 119/70
--- NOTE | 2019-08-25 12:31 | NUR ---
PT DISCHARGING TODAY TO HOME WITH [facility] FOR IV ABX TX. FAXED DC ORDERS TO [facility] SPOKE WITH LETA AND SHE RECEIVED DC ORDERS AND SHE IS GOING TO COORDINATE WITH [facility] VISITS. FAXED DC ORDERS/SUMMARY TO [facility] SPOKE WITH RENATA (PHARMACIST) AND SHE RECEIVED DC ORDERS AND SHE WILL NOTIFY PT'S TIME OF VISITS.
--- NOTE | 2019-08-25 20:06 | HC ---
[facility] [place] [address] CONSULTATION Name: ANCA KOEHLER Room #: 209-P [facility] IN M.R.#: [id number] Admission: 08/18/19 Attend Phys: Josh Hahn Discharge: 08/25/19 Date of : 58 Report #: [id number] THIS REPORT FOR: //name// CC: Josh York DATE OF SERVICE: 08/24/2019 INFECTIOUS DISEASE CONSULTATION REASON FOR CONSULTATION: I was asked to evaluate concerning osteomyelitis of the right second metatarsal. HISTORY OF PRESENT ILLNESS: This is a 59-year-old admitted on 08/18/2019 with chronic nonhealing ulcer to the plantar aspect of his right foot over the second metatarsal head. This is in the setting of diabetes and peripheral neuropathy. He has had previous first and third toe amputations. Outpatient culture had revealed MRSA. He was treated with vancomycin and Zosyn. Taken to surgery by Dr. Avelino Cook performed a right mid foot amputation on 08/21/2019 with no intraoperative or early postoperative complications. Incision is now dressed. He was evaluated today by Orthopedic Surgery who felt that the incision was healing in nicely. Preoperatively, he had received levofloxacin for about 1 week. He had been on and off this several times in the last month. The patient reports no specific trauma. No fever, chills or sweats. Pain is under control. REVIEW OF SYSTEMS: A 10-point review of systems was negative other than what has been described above. PAST MEDICAL HISTORY: Diabetes, peripheral neuropathy, previous right first and second toe amputations, degenerative arthritis, pyoderma gangrinosum, hypertension, chronic back pain. ALLERGIES: NEOMYCIN, BACTRIM. MEDICATIONS: As noted on his MAR, now on vancomycin and Zosyn. FAMILY HISTORY: Noncontributory. SOCIAL HISTORY: Past smoker, no significant alcohol intake. PHYSICAL EXAMINATION: VITAL SIGNS: Afebrile and hemodynamically stable. GENERAL: He is alert and cooperative. SKIN: Without rash or decubitus. EXTREMITIES: 1+ peripheral edema below the knees bilaterally. Right foot amputation noted with dressing dry and intact. Pulses in the [facility] and [address] [address] CONSULTATION Name: ANCA KOEHLER Room #: 209-P [facility] IN M.R.#: [id number] Admission: 08/18/19 Attend Phys: Josh Hahn Discharge: 08/25/19 Date of : 58 Report #: [id number] popliteal region on the right lower extremity were 3+. No appreciable bruits. EYES: Without scleral icterus. MOUTH: Without mucositis. NECK: Supple. No palpable adenopathy. CHEST: Clear. HEART: Regular, without murmur, gallop or rub. ABDOMEN: Soft and nontender with no hepatosplenomegaly or mass. GENITORECTAL: Not performed. BACK: Nontender. No CVA tenderness. NEUROLOGIC: Cranial nerves intact. Decreased sensation to touch in the left distal foot. Strength in the upper and lower extremities was symmetric and within normal limits. Mood normal with no evidence of anxiety or depression. MEDICATIONS: Reviewed. CULTURES: Reviewed. X-ray of the foot reviewed. MRI scan reviewed. IMPRESSION: Right second metatarsal head osteomyelitis, methicillin-resistant staphylococcus aureus in the setting of diabetes and peripheral neuropathy. He is postoperative day #3 from mid foot amputation. Tissue samples were not sent for path or culture. RECOMMENDATIONS: We will continue IV antibiotic therapy with vancomycin postoperatively. We will arrange outpatient infusion. We will obtain weekly laboratory studies. We will follow up next week in the outpatient clinic. I have discussed the case with case management, nursing, Dr. Christianson, wound care service. <ELECTRONICALLY SIGNED> By: Brant Augustine MD 08/25/192005 1431 0025 Brant Augustine MD /nt
--- NOTE | 2019-08-25 20:14 | NUR ---
ASSUMED CARE 0700, A/OX4, DENIES SOB, DENIES PAIN, HEEL BOOT PROVIDED. WOUND DRESSING CHANGED AND PICTURE TAKEN FOR [id number]. SENT HOME DRESSING SUPPLIES FOR 2 DAYS. REVIEWED DC PAPER WORK INCLUDING FOLLOWING UP WITH CARDIOLOGY FOR ECHO,FOLLOW UP WITH WOUND CARE IN 7-10 DAYS, FOLLOW UP WITH INFECTOUS DISEASE 1 WEEK. REVIED NEW MED MEDICATION. PT HAD IV INFUSION EDUCATIONS WITH [facility] CARE INSURANCE COORDINATOR. PT LEFT WITH ALL BELONGINGS.
--- NOTE | 2019-08-26 11:08 | PATH ---
[facility] [address] [place] [address] PATHOLOGY RPT PROCEDURE Name: JUAN DAVID KOEHLER Room #: 209-P DIS IN M.R.#: [id number] Admission: 08/18/19 Date of : 58 Discharge: 08/25/19 Report #: [id number] Path Case #: [id number] [facility] Accession Number: [id number] . 01 Material submitted: . foot - RIGHT MID FOOT. Modifiers: right, mid . 01 Clinical history: . Infected right foot, open wound right foot . 02 Diagnosis: Foot, right mid foot, amputation: - Skin and subcutaneous tissue showing ulceration, fibrinoid degeneration and marked acute inflammation with abscess formation. - Marked acute inflammation extends into underlying bone associated with acute osteomyelitis and osteonecrosis. - Bone margins viable and unremarkable. (IUV:pit 08/25/2019) QTP 08/25/2019 1514 Local . 02 Electronically signed: . Flora Concepcion MD, Pathologist NPI- [id number] . 01 Gross description: . The specimen is received in formalin, labeled "Juan David Koehler, right mid foot". Received is a partial distal forefoot amputation measuring 9.1 x 6.5 x 3.9 cm in greatest dimensions. Toes 1 and 2 have been previously amputated. Toes 3 through 5 are present displaying a white-thapa to pink-thapa and wrinkled appearance. The bone margin of the first toe is identified displaying a smooth and concave appearance, consistent with disarticulation, and is inked black. Also received within the specimen container are four additional segments of bone, consistent with possible metatarsals, measuring 6.1 x 5.1 x 3.0 cm in aggregate dimensions, three of which are attached to each other. All four of these bone margins are smooth and concave in appearance, consistent with disarticulation. These bone margins are differentially inked blue, yellow, red, and orange. Also received within the specimen container are additional segments of skin and underlying soft tissue measuring 6.3 x 3.5 x 2.2 cm in aggregate dimensions. The epidermal surface of the larger segment displays a well-circumscribed, irregular in contour and pale thapa to lamb-thapa lesion measuring 1.5 x 1.5 cm. The specimen is submitted representatively as follows: . A1 longitudinal cross-section through bone margin of first toe (black ink), bisected, following decalcification A2 longitudinal cross-section through bone margin with blue ink, [place] [address] PATHOLOGY RPT PROCEDURE Name: JUAN DAVID KOEHLER Room #: 209-P DIS IN M.R.#: [id number] Admission: 08/18/19 Date of : 58 Discharge: 08/25/19 Report #: [id number] Path Case #: [id number] following decalcification A3 longitudinal cross section through bone margin with yellow ink, following decalcification A4 longitudinal cross section through bone margin with red ink, following decalcification A5 longitudinal cross section through bone margin with orange ink, following decalcification A6 floor representative sections of separately submitted soft tissue. . Gross photographs are taken. (CAA; 08/24/2019) QAC/QAC 08/24/2019 1117 Local . 02 Pathologist provided ICD-10: L98.9, L97.519, M86.171, M87.9 . 02 CPT . 266712, 648840 Specimen Comment: A courtesy copy of this report has been sent to [phone] Specimen Comment: [phone], Specimen Comment: Report sent to , and Performed at: [address] [facility] [address], [place] [id number] MD Issa Pugh MD Phone: [phone] Performed at: [address] [facility] [address] [id number] MD Flora Concepcion MD Phone: [phone]
== END 2019-08-25 15:28 | disposition home health service (06) | DRG 617 ==
LOC: 4W 16:42 → 2N 08-23 21:23 → ENTRNSPT 08-25 15:17 → 2N 08-25 15:28
PROVIDERS: Internal Medicine; Nurse Practitioner; ADMIT Hospitalist
PROC: 0Y6M0ZD Detachment at Right Foot, Partial 4th Ray, Open Approach (ICD-10-PCS; principal; 2019-08-21)
PROC: 0Y6M0ZF Detachment at Right Foot, Partial 5th Ray, Open Approach (ICD-10-PCS; principal; 2019-08-21)
PROC: 0Y6M0ZC Detachment at Right Foot, Partial 3rd Ray, Open Approach (ICD-10-PCS; principal; 2019-08-21)
PROC: 05HY33Z Insertion of Infusion Device into Upper Vein, Percutaneous Approach (ICD-10-PCS; 2019-08-24)
DX: E11.69 Type 2 diabetes mellitus with other specified complication (principal); L03.115 Cellulitis of right lower limb; L97.518 Non-pressure chronic ulcer of other part of right foot with other specified severity; E44.1 Mild protein-calorie malnutrition; M31.9 Necrotizing vasculopathy, unspecified; M86.171 Other acute osteomyelitis, right ankle and foot; N17.0 Acute kidney failure with tubular necrosis; E11.621 Type 2 diabetes mellitus with foot ulcer; M19.90 Unspecified osteoarthritis, unspecified site; E11.42 Type 2 diabetes mellitus with diabetic polyneuropathy; I10 Essential (primary) hypertension; M54.9 Dorsalgia, unspecified; G89.4 Chronic pain syndrome; Z89.421 Acquired absence of other right toe(s); Z88.8 Allergy status to other drugs, medicaments and biological substances; Z89.411 Acquired absence of right great toe; Z79.891 Long term (current) use of opiate analgesic; Z68.31 Body mass index [BMI] 31.0-31.9, adult; Z79.2 Long term (current) use of antibiotics; Z79.84 Long term (current) use of oral hypoglycemic drugs; Z79.899 Other long term (current) drug therapy; Z87.442 Personal history of urinary calculi; Z87.891 Personal history of nicotine dependence
CPT/HCPCS: 10047; 10081; 27000; 50010; 50101; 50386; 50951; 51412; 56524; 56527; 57091; 57180; 62110; 62900; 70005

== ENCOUNTER → 2019-08-18 | Outpatient (CLI) | payer OTHER ==
[~2019-08-18] MED LIST changes: +MELOXICAM15 MG PO; +PERCOCET 10-321 EAC1 PO
== END ==
LOC: HYPER 14:28
DX: E11.621 Type 2 diabetes mellitus with foot ulcer (principal); L97.512 Non-pressure chronic ulcer of other part of right foot with fat layer exposed; I87.2 Venous insufficiency (chronic) (peripheral); E11.40 Type 2 diabetes mellitus with diabetic neuropathy, unspecified; L84 Corns and callosities; E11.69 Type 2 diabetes mellitus with other specified complication; I10 Essential (primary) hypertension; Z87.891 Personal history of nicotine dependence; Z79.84 Long term (current) use of oral hypoglycemic drugs; Z89.411 Acquired absence of right great toe

== ENCOUNTER → 2019-09-07 | Outpatient (CLI) | payer OTHER ==
[~2019-09-07] MED LIST changes: +MELOXICAM15 MG PO; +PERCOCET 10-321 EAC1 PO
== END ==
LOC: HYPER 11:46
DX: T87.81 Dehiscence of amputation stump (principal); E11.621 Type 2 diabetes mellitus with foot ulcer; L97.511 Non-pressure chronic ulcer of other part of right foot limited to breakdown of skin; E11.65 Type 2 diabetes mellitus with hyperglycemia; I87.2 Venous insufficiency (chronic) (peripheral); I10 Essential (primary) hypertension; Z87.891 Personal history of nicotine dependence; Y83.5 Amputation of limb(s) as the cause of abnormal reaction of the patient, or of later complication, without mention of misadventure at the time of the procedure

== ENCOUNTER → 2019-09-21 | Outpatient (CLI) | payer OTHER | LOC: HYPER 11:20 | DX: T87.81 Dehiscence of amputation stump (principal); E11.621 Type 2 diabetes mellitus with foot ulcer; L97.511 Non-pressure chronic ulcer of other part of right foot limited to breakdown of skin; I87.2 Venous insufficiency (chronic) (peripheral); E11.40 Type 2 diabetes mellitus with diabetic neuropathy, unspecified; E11.65 Type 2 diabetes mellitus with hyperglycemia; I10 Essential (primary) hypertension; Z87.891 Personal history of nicotine dependence; Z79.84 Long term (current) use of oral hypoglycemic drugs; Y83.5 Amputation of limb(s) as the cause of abnormal reaction of the patient, or of later complication, without mention of misadventure at the time of the procedure ==

== ENCOUNTER → 2019-10-05 | Outpatient (CLI) | payer OTHER | LOC: HYPER 11:02 | DX: T87.81 Dehiscence of amputation stump (principal); E11.621 Type 2 diabetes mellitus with foot ulcer; L97.511 Non-pressure chronic ulcer of other part of right foot limited to breakdown of skin; E11.65 Type 2 diabetes mellitus with hyperglycemia; I87.2 Venous insufficiency (chronic) (peripheral); I10 Essential (primary) hypertension; Z87.891 Personal history of nicotine dependence; Y83.5 Amputation of limb(s) as the cause of abnormal reaction of the patient, or of later complication, without mention of misadventure at the time of the procedure ==

== ENCOUNTER → 2019-10-26 | Outpatient (CLI) | payer OTHER | LOC: HYPER 09:49 | DX: T87.81 Dehiscence of amputation stump (principal); E11.621 Type 2 diabetes mellitus with foot ulcer; L97.511 Non-pressure chronic ulcer of other part of right foot limited to breakdown of skin; E11.65 Type 2 diabetes mellitus with hyperglycemia; I10 Essential (primary) hypertension; Z87.891 Personal history of nicotine dependence; Y83.5 Amputation of limb(s) as the cause of abnormal reaction of the patient, or of later complication, without mention of misadventure at the time of the procedure ==

== ENCOUNTER → 2019-11-12 | Outpatient (CLI) | payer OTHER | LOC: HYPER 10:15 | DX: T81.31XD Disruption of external operation (surgical) wound, not elsewhere classified, subsequent encounter (principal); E11.621 Type 2 diabetes mellitus with foot ulcer; L97.511 Non-pressure chronic ulcer of other part of right foot limited to breakdown of skin; L84 Corns and callosities; E11.65 Type 2 diabetes mellitus with hyperglycemia; I10 Essential (primary) hypertension; Z87.891 Personal history of nicotine dependence; Z89.511 Acquired absence of right leg below knee; Y83.8 Other surgical procedures as the cause of abnormal reaction of the patient, or of later complication, without mention of misadventure at the time of the procedure ==

== ENCOUNTER → 2019-12-03 | Outpatient (CLI) | payer OTHER | LOC: HYPER 10:35 | DX: E11.621 Type 2 diabetes mellitus with foot ulcer (principal); L97.512 Non-pressure chronic ulcer of other part of right foot with fat layer exposed; L84 Corns and callosities; E11.65 Type 2 diabetes mellitus with hyperglycemia; E11.40 Type 2 diabetes mellitus with diabetic neuropathy, unspecified; I87.2 Venous insufficiency (chronic) (peripheral); I10 Essential (primary) hypertension; Z87.891 Personal history of nicotine dependence; Z89.411 Acquired absence of right great toe ==

== ENCOUNTER → 2019-12-24 | Outpatient (CLI) | payer OTHER | LOC: HYPER 10:02 | DX: E11.621 Type 2 diabetes mellitus with foot ulcer (principal); L97.512 Non-pressure chronic ulcer of other part of right foot with fat layer exposed; E11.622 Type 2 diabetes mellitus with other skin ulcer; L97.322 Non-pressure chronic ulcer of left ankle with fat layer exposed; L84 Corns and callosities; E11.65 Type 2 diabetes mellitus with hyperglycemia; E11.40 Type 2 diabetes mellitus with diabetic neuropathy, unspecified; I87.2 Venous insufficiency (chronic) (peripheral); I10 Essential (primary) hypertension; Z87.891 Personal history of nicotine dependence; Z89.411 Acquired absence of right great toe ==

== ENCOUNTER → 2019-12-28 | Outpatient (CLI) | payer OTHER | LOC: SJCVCIMAG 11:01 | PROVIDERS: ATTEND Emergency Medicine | DX: L97.819 Non-pressure chronic ulcer of other part of right lower leg with unspecified severity (principal); I73.9 Peripheral vascular disease, unspecified ==

== ENCOUNTER → 2019-12-29 | Outpatient (CLI) | payer OTHER | LOC: MRI 12-28 09:25 | PROVIDERS: ATTEND Emergency Medicine | DX: L97.512 Non-pressure chronic ulcer of other part of right foot with fat layer exposed (principal); E11.621 Type 2 diabetes mellitus with foot ulcer; E11.40 Type 2 diabetes mellitus with diabetic neuropathy, unspecified ==

== ENCOUNTER → 2019-12-31 | Outpatient (CLI) | payer OTHER | LOC: HYPER 09:03 | DX: E11.621 Type 2 diabetes mellitus with foot ulcer (principal); L97.512 Non-pressure chronic ulcer of other part of right foot with fat layer exposed; E11.622 Type 2 diabetes mellitus with other skin ulcer; L97.322 Non-pressure chronic ulcer of left ankle with fat layer exposed; L84 Corns and callosities; E11.65 Type 2 diabetes mellitus with hyperglycemia; E11.40 Type 2 diabetes mellitus with diabetic neuropathy, unspecified; I87.2 Venous insufficiency (chronic) (peripheral); I10 Essential (primary) hypertension; Z87.891 Personal history of nicotine dependence; Z89.411 Acquired absence of right great toe ==

== ENCOUNTER → 2020-01-18 | Outpatient (CLI) | payer OTHER | LOC: HYPER 13:09 | PROVIDERS: ATTEND Emergency Medicine | DX: T87.89 Other complications of amputation stump (principal); E11.621 Type 2 diabetes mellitus with foot ulcer; L97.512 Non-pressure chronic ulcer of other part of right foot with fat layer exposed; E11.622 Type 2 diabetes mellitus with other skin ulcer; L97.322 Non-pressure chronic ulcer of left ankle with fat layer exposed; S90.821D Blister (nonthermal), right foot, subsequent encounter; S90.522D Blister (nonthermal), left ankle, subsequent encounter; I87.2 Venous insufficiency (chronic) (peripheral); L84 Corns and callosities; E11.65 Type 2 diabetes mellitus with hyperglycemia; E11.40 Type 2 diabetes mellitus with diabetic neuropathy, unspecified; I10 Essential (primary) hypertension; Z87.891 Personal history of nicotine dependence; Z79.84 Long term (current) use of oral hypoglycemic drugs; Y83.5 Amputation of limb(s) as the cause of abnormal reaction of the patient, or of later complication, without mention of misadventure at the time of the procedure; X58.XXXD Exposure to other specified factors, subsequent encounter ==

== ENCOUNTER → 2020-02-08 | Outpatient (CLI) | payer OTHER | LOC: HYPER 13:06 | PROVIDERS: ATTEND Emergency Medicine | DX: T87.89 Other complications of amputation stump (principal); E11.621 Type 2 diabetes mellitus with foot ulcer; L97.512 Non-pressure chronic ulcer of other part of right foot with fat layer exposed; E11.622 Type 2 diabetes mellitus with other skin ulcer; L97.322 Non-pressure chronic ulcer of left ankle with fat layer exposed; S90.821D Blister (nonthermal), right foot, subsequent encounter; S90.522D Blister (nonthermal), left ankle, subsequent encounter; I87.2 Venous insufficiency (chronic) (peripheral); E11.40 Type 2 diabetes mellitus with diabetic neuropathy, unspecified; E11.65 Type 2 diabetes mellitus with hyperglycemia; L84 Corns and callosities; I10 Essential (primary) hypertension; Z87.891 Personal history of nicotine dependence; Z79.84 Long term (current) use of oral hypoglycemic drugs; X58.XXXD Exposure to other specified factors, subsequent encounter; Y83.5 Amputation of limb(s) as the cause of abnormal reaction of the patient, or of later complication, without mention of misadventure at the time of the procedure ==

== ENCOUNTER → 2020-02-29 | Outpatient (CLI) | payer OTHER | LOC: HYPER 10:34 | PROVIDERS: ATTEND Emergency Medicine | DX: E11.621 Type 2 diabetes mellitus with foot ulcer (principal); L97.512 Non-pressure chronic ulcer of other part of right foot with fat layer exposed; E11.65 Type 2 diabetes mellitus with hyperglycemia; E11.40 Type 2 diabetes mellitus with diabetic neuropathy, unspecified; E11.622 Type 2 diabetes mellitus with other skin ulcer; L97.322 Non-pressure chronic ulcer of left ankle with fat layer exposed; L84 Corns and callosities; I87.2 Venous insufficiency (chronic) (peripheral); I10 Essential (primary) hypertension; Z87.891 Personal history of nicotine dependence; Z89.411 Acquired absence of right great toe ==

== ENCOUNTER → 2021-06-26 | Outpatient (CLI) | payer OTHER | LOC: HYPER 10:32 | PROVIDERS: ATTEND Emergency Medicine | DX: E11.622 Type 2 diabetes mellitus with other skin ulcer (principal); L97.312 Non-pressure chronic ulcer of right ankle with fat layer exposed; L97.322 Non-pressure chronic ulcer of left ankle with fat layer exposed; E11.621 Type 2 diabetes mellitus with foot ulcer; L97.512 Non-pressure chronic ulcer of other part of right foot with fat layer exposed; I87.2 Venous insufficiency (chronic) (peripheral); E11.43 Type 2 diabetes mellitus with diabetic autonomic (poly)neuropathy; L88 Pyoderma gangrenosum; I10 Essential (primary) hypertension; Z87.891 Personal history of nicotine dependence; Z79.84 Long term (current) use of oral hypoglycemic drugs; Z79.899 Other long term (current) drug therapy; Z89.411 Acquired absence of right great toe ==

== ENCOUNTER → 2021-07-13 | Outpatient (CLI) | payer OTHER | LOC: HYPER 11:23 | PROVIDERS: ATTEND Emergency Medicine | DX: E11.621 Type 2 diabetes mellitus with foot ulcer (principal); L97.512 Non-pressure chronic ulcer of other part of right foot with fat layer exposed; E11.622 Type 2 diabetes mellitus with other skin ulcer; L97.322 Non-pressure chronic ulcer of left ankle with fat layer exposed; L97.312 Non-pressure chronic ulcer of right ankle with fat layer exposed; E11.43 Type 2 diabetes mellitus with diabetic autonomic (poly)neuropathy; I87.2 Venous insufficiency (chronic) (peripheral); L88 Pyoderma gangrenosum; I10 Essential (primary) hypertension; Z79.84 Long term (current) use of oral hypoglycemic drugs; Z89.411 Acquired absence of right great toe; Z98.890 Other specified postprocedural states; Z87.891 Personal history of nicotine dependence; Z79.899 Other long term (current) drug therapy ==

== ENCOUNTER → 2021-08-03 | Outpatient (CLI) | payer OTHER | LOC: HYPER 10:04 | PROVIDERS: ATTEND Emergency Medicine | DX: E11.621 Type 2 diabetes mellitus with foot ulcer (principal); L97.412 Non-pressure chronic ulcer of right heel and midfoot with fat layer exposed; E11.622 Type 2 diabetes mellitus with other skin ulcer; L97.322 Non-pressure chronic ulcer of left ankle with fat layer exposed; L97.312 Non-pressure chronic ulcer of right ankle with fat layer exposed; S80.212A Abrasion, left knee, initial encounter; S80.211A Abrasion, right knee, initial encounter; E11.43 Type 2 diabetes mellitus with diabetic autonomic (poly)neuropathy; L88 Pyoderma gangrenosum; I87.2 Venous insufficiency (chronic) (peripheral); I10 Essential (primary) hypertension; Z79.84 Long term (current) use of oral hypoglycemic drugs; Z89.411 Acquired absence of right great toe; Z87.891 Personal history of nicotine dependence; X58.XXXA Exposure to other specified factors, initial encounter; Y93.89 Activity, other specified; Y92.89 Other specified places as the place of occurrence of the external cause; Y99.8 Other external cause status ==

== ENCOUNTER 2021-09-13 11:58 | Inpatient (IN) | payer OTHER ==
[~2021-09-13] VITALS: Ht 175.3 cm; Wt 92.5 kg
[2021-09-13 12:05] VITALS: BP 148/90
[2021-09-13] MEDS ORDERED: LISINOPRIL10 MG PO ×2 (12:19)
[2021-09-13] MEDS ORDERED: TERBINAFINE15 G1 TOP ×2 (12:20)
[2021-09-13] MEDS ORDERED: LINEZOLID600 MG PO ×2 (12:21)
[2021-09-13] MEDS ORDERED: [UNRECOGNIZED DRUG - OTHER] TOP ×2 (12:22)
[2021-09-13] MEDS ORDERED: DAPSONE25 MG PO ×2 (12:22)
[2021-09-13] MEDS ORDERED: HYDROXYZINE HCL25 M2 PO ×2 (12:23)
[2021-09-13 12:48] LABS: ABSOLUTE NEUTROPHILS 7.3 thou/uL (1.4-8.2); BASOPHILS 0.5 % (0.0-2.0); HEMATOCRIT 37.7 % (42.0-52.0); HEMOGLOBIN 12.4 gm/dL (14.0-18.0); LYMPHOCYTES 12.7 % (24.0-44.0); MCH 29.6 pg (26.0-34.0); MCV 89.5 fL (80.0-100.0); MONOCYTES 10.3 % (1.0-8.0); PLATELET COUNT 180 thou/uL (150-400); POLYS 75.5 % (36.0-66.0); RBC 4.21 mil/uL (4.50-6.00); RDW 14.2 % (10.5-14.5); WBC 9.7 thou/uL (4.0-11.0)
[2021-09-13 13:06] LABS: CREATININE 1.5 mg/dL (0.7-1.3); POTASSIUM 4.1 mmol/L (3.5-5.1)
[2021-09-13 13:12] LABS: ALBUMIN 3.5 g/dL (3.4-5.0); TOTAL BILIRUBIN 0.3 mg/dL (0.2-1.0); TOTAL PROTEIN 7.6 g/dL (6.4-8.2)
--- NOTE | 2021-09-13 14:23 | NUR ---
PT GIVEN TURKEY SANDWICH.
--- NOTE | 2021-09-13 14:47 | NUR ---
IV TEAM AT BEDSIDE TO INSERT PICC.
--- NOTE | 2021-09-13 15:33 | NUR ---
VAT CONSULTED FOR PICC PLACEMENT. DISCUSSED BENEFITS AND RISK WITH PT, VERBALIZED UNDERSTANDING STATES HAS HAD SEVERAL PICCS IN PAST. OLLIE BASILIC WAS WIDELY PATENBT WITH USG. 4FR DL POWER PICC TRIMMED TO 48CM INSERTED TO 3CM WITH PEAKED P-WAVES ON 3CG FOR CONFIRMATION. PT TOLERATED WELL. BLEEDING AT SXITE, GAUZE APPLIED. PICC RELEASED FOR IMMEDIATE USE PER PROTOCOL TO PHU GALLEGOS
[2021-09-13 15:38] VITALS: BP 137/66
[2021-09-13 15:56] VITALS: BP 125/73
--- NOTE | 2021-09-14 00:33 | NUR ---
This RN assumed care of patient at approximately 1845. Patient is found to be alert and oriented x4. Patient is on enhanced precautions. Patient is on room air. Patientis cc/ tele and has been running sinus rhythm this shift. Patient is achs accu cheks. Patient uses his urinal for toileting. Patient is unsteady when standing on his feet. Patient encouraged to call for assistance with transferring; patient acknowledges his understanding. Patient has BLE wounds that were dressed by previous shift at shift change. Patient has a 20g IV in his right forearm and a right upper arm double lumen picc that are both patent. The IV in he forearm is saline locked. The PICC line has normal saline currently infusing at 75 mL per hour. Patient thus far this shift has had consistent pain in both Lower extremities at a steady 8 and has been treated with ordered pain medications. Patient will continue to be monitored.
[2021-09-14 03:51] VITALS: BP 142/82
[2021-09-14 05:15] LABS: D-DIMER 0.59 ug/mLFEU (0.19-0.50); INR 1.03; PROTIME 11.2 Seconds (10.5-12.1)
[2021-09-14 05:26] LABS: HEMATOCRIT 31.4 % (42.0-52.0); HEMOGLOBIN 10.6 gm/dL (14.0-18.0); MCH 29.9 pg (26.0-34.0); MCHC 33.6 g/dL (28.0-37.0); MCV 88.9 fL (80.0-100.0); RBC 3.53 mil/uL (4.50-6.00); RDW 13.7 % (10.5-14.5); WBC 5.8 thou/uL (4.0-11.0)
[2021-09-14 05:48] LABS: ALBUMIN 2.7 g/dL (3.4-5.0); CREATININE 1.2 mg/dL (0.7-1.3); PHOSPHORUS 3.2 mg/dL (2.5-4.9); POTASSIUM 4.3 mmol/L (3.5-5.1); TOTAL BILIRUBIN 0.1 mg/dL (0.2-1.0); TOTAL PROTEIN 6.1 g/dL (6.4-8.2)
[2021-09-14 06:46] VITALS: BP 147/89
[2021-09-14 11:51] VITALS: BP 144/84
--- NOTE | 2021-09-14 15:38 | NUR ---
PER FAUZIA, BIENVENIDO INITIAL ASSESSMENT: FAUZIA spoke with nursing and attending physician. Pt was admitted from home due to bilateral ankle wounds. Pt placed in Enhanced Isolation due to COVID. Pt is on IV abx. Wound care consulted. Pt may need amputation. FAUZIA spoke with pt via phone. Introduced role of SW. Pt appears to be alert/orientated x 4. Pt reports he lives at home. Pt's recently . Pt's children are supportive and involved in pt's care. Pt states he has a walker to use as needed. Pt has had HH services and home IV abx in the past. Pt is unsure of name of providers. Pt's PCP was Dr. Nitesh York. Pt is now seeing Jessy Sierra NP for primary care since Dr. York retired. Pt's plan is to return home when medically stable. SW is following to assist as needed with discharge planning. ELVA Cary
[2021-09-14 16:33] VITALS: BP 176/99
--- NOTE | 2021-09-14 18:38 | NUR ---
ASSUMED PATIENT CARE AT 0700. A/O X4. BLE WOUND DRESSING CHANGED PER ORDER PICTURES TOOK. UP WITH ASSISTED TO BCS. VSS. KEP MONITOR.
[2021-09-14 20:07] VITALS: BP 155/76
[2021-09-15 05:44] LABS: ALBUMIN 2.9 g/dL (3.4-5.0); ANION GAP 10 mmol/L (7-16); BUN 16 mg/dL (7-18); CALCIUM 8.5 mg/dL (8.5-10.1); CHLORIDE 106 mmol/L (98-107); CO2 25 mmol/L (21-32); DIRECT BILIRUBIN < 0.1 mg/dL (<0.1-0.2); GLUCOSE 97 mg/dL (74-106); PHOSPHORUS 2.8 mg/dL (2.5-4.9); POTASSIUM 3.9 mmol/L (3.5-5.1); SGOT 22 U/L (15-37); SGPT 30 U/L (30-65); SODIUM 141 mmol/L (136-145); TOTAL BILIRUBIN 0.4 mg/dL (0.2-1.0); TOTAL PROTEIN 6.6 g/dL (6.4-8.2)
--- NOTE | 2021-09-15 06:47 | NUR ---
ASSUMED PT CARE AT 1900. PT IS ALERT & ORIENTED X 4, IS CALM & COOPERATIVE. PT HAD NO C/O OF PAIN THIS SHIFT. PT STATED THAT THE FENTANYL PATCH IS WORKING WELL AND HE HAS NOT HAD THIS LEVEL OF PAIN RELIEF IN A WHILE. PT REFUSED HS DRESSING CHANGE TO BILATERAL LOWER EXTREMITY WOUNDS. IV ABX ADMINISTERED. VSS AFEBRILE. PT IS ABLE TO MAKE NEEDS KNOWN. CONTINUE WITH PLAN OF CARE.
[2021-09-15 09:49] VITALS: BP 153/96
--- NOTE | 2021-09-15 14:51 | NUR ---
SW reviewed chart and spoke with nursing and attending physician. Pt remains in Enhanced Isolation due to COVID. Pt is afebrile and on room air. Pt is on IV abx and Remdesivir. No weekend discharge planned. Pt may need to d/c home with IV abx. Awaiting input from ID. FAUZIA is following to assist as needed with discharge planning.
[2021-09-15 16:35] VITALS: BP 159/01
[2021-09-15 20:17] VITALS: BP 176/88
[2021-09-16 04:52] LABS: ALBUMIN 3.1 g/dL (3.4-5.0); ANION GAP 8 mmol/L (7-16); BUN 12 mg/dL (7-18); CALCIUM 8.8 mg/dL (8.5-10.1); CHLORIDE 105 mmol/L (98-107); CO2 28 mmol/L (21-32); CREATININE 1.1 mg/dL (0.7-1.3); DIRECT BILIRUBIN < 0.1 mg/dL (<0.1-0.2); GLUCOSE 105 mg/dL (74-106); PHOSPHORUS 3.5 mg/dL (2.5-4.9); POTASSIUM 4.2 mmol/L (3.5-5.1); SGOT 26 U/L (15-37); SGPT 34 U/L (30-65); SODIUM 141 mmol/L (136-145); TOTAL BILIRUBIN 0.3 mg/dL (0.2-1.0); TOTAL PROTEIN 6.8 g/dL (6.4-8.2)
[2021-09-16 05:10] VITALS: BP 156/99
--- NOTE | 2021-09-16 06:12 | NUR ---
CARE ASSUMED AT 1900. VSS AFEBRILE. PT HAD MULTIPLE C/O OF PAIN ON LEFT LOWER EXTREMITY. PT REFUSED HS DRESSING CHANGE. PT HAS FENTANYL PATCH ON RIGHT UPPER ARM AND IT IS INTACT. ADMINISTERED PAIN MEDS PRN AND NOTED PARTIAL RELIEF. CURRENTLY PT IS RESTING COMFORTABLY IN BED AND EXPRESSES NO OTHER NEEDS. CONTINUE WITH PLAN OF CARE.
[2021-09-16 07:38] VITALS: BP 152/90
[2021-09-16 16:22] VITALS: BP 144/97
--- NOTE | 2021-09-16 18:25 | NUR ---
DRESSING CHANGED PER ORDER. PAIN MEDS GIVEN NEED.
[2021-09-16 19:27] VITALS: BP 157/95
[2021-09-17 04:11] VITALS: BP 147/75
--- NOTE | 2021-09-17 06:37 | NUR ---
CARE ASSUMED PT CARE AT 1900. PT IS ALERT & ORIENTED X 4. PT REFUSED HS DRESSING CHANGE AND HAD MULTIPLE C/O OF PAIN. VSS AFEBRILE. INSTRUCTED TO ELEVATE LOWER EXTREMITIES TO RELIEVE LOWER EXTREMITY EDEMA. PT IS PROGRESSING TOWARDS POC GOALS. CONTINUE WITH PLAN OF CARE.
[2021-09-17 07:45] VITALS: BP 161/99
[2021-09-17 16:03] VITALS: BP 157/98
[2021-09-17 20:51] VITALS: BP 162/101
[2021-09-17 21:19] VITALS: BP 182/98
--- NOTE | 2021-09-17 23:35 | NUR ---
PT A&OX4. AFEBRILE. BP ELEVATED. WIRE PHOTO OPERATOR NOTIFIED. HYDRALAZINE GIVEN ORDERED. WILL RECHECK BP. OXYCODONE GIVEN FOR LE PAIN 01/05. DRESSINGS TO LES DONE ON DAY SHIFT. PT REFUSED FOR HS DRESSING CHANGE TO BE DONE. OXYCODONE GIVEN FOR PAIN. PT IS RESTING QUIETLY PRESENTLY.
[2021-09-18 00:09] VITALS: BP 146/92
[2021-09-18 03:20] VITALS: BP 143/79
[2021-09-18 07:55] VITALS: BP 142/97
--- NOTE | 2021-09-18 11:08 | NUR ---
FAUZIA reviewed chart and spoke with nursing and attending physician. Pt remains in Enhanced Isolation due to COVID. Pt is afebrile and on room air. Pt remains on IV abx. Received consult to arrange home IV infusion: Zosyn 4.5 gm IV every 8 hours. FAUZIA spoke with pt via phone to discuss discharge plan. Pt is hoping to discharge home today. FAUZIA provided options for home infusion and HH agencies. No preference voiced. Pt is unable to recall previous providers. FAUZIA faxed IV infusion referral to [facility]. Notified [facility] liaison of new referral. FAUZIA received call from Martine at [facility] stating pt's copay is $514.97/week. ($358.87 for the IV abx and $156.10 for the supplies). FAUZIA discussed with pt via phone. Pt states he cannot afford that cost. Pt will likely need IV abx for at least 4-6 weeks. FAUZIA discussed alternate options with pt: contacting ID for alternate recommendations, outpatient infusion if possible, post-acute placement. Pt is not agreeable with post-acute placement. Pt would consider outpatient infusion if needed. FAUZIA contacted attending physician to discuss with ID. FAUZIA faxed HH referral to [facility] for review. Notified liaison of new referral. FAUZIA is following to assist as needed with discharge planning.
--- NOTE | 2021-09-18 11:15 | HC ---
[facility] [place] [address] CONSULTATION Name: ANCA KOEHLER Room #: 363-P ADM IN M.R.#: [id number] Admission: 09/13/21 Attend Phys: Behzad Reyna DO Discharge: Date of : 58 Report #: [id number] THIS REPORT FOR: cc: Nitesh York,Farzad Mae MD ~ DATE OF SERVICE: 09/13/2021 CHIEF COMPLAINT: Lower extremity cellulitis with pyoderma gangrinosum. HISTORY OF PRESENT ILLNESS: This is a 61-year-old male patient with a history of bilateral lower extremity pyoderma gangrinosum who has been followed by Dr. Matthew De La Paz and Dr. Joseph Christianson for wound care and Dermatology. The patient notes that his has recently , but he has had increasingly large and painful ulcerations to the medial ankles. Recent biopsies have demonstrated pyoderma gangrenosum. He has had increasing pain, swelling, redness, drainage and is now admitted to the hospital. He has been followed by Dr. De La Paz and has had recent treatment with ___. Dr. De La Paz has indicated a desire to continue this medication prior to considering amputated surgery. PAST MEDICAL HISTORY: Positive for diabetes mellitus, history of kidney stones, hypertension and pyoderma gangrinosum. ALLERGIES: BACITRACIN, NEOMYCIN, POLYMYXIN B. MEDICATIONS: Includes, Dapsone, hydroxyzine, linezolid, lisinopril, meloxicam, metformin, Percocet, pregabalin, terbinafine, clobetasol. FAMILY HISTORY: Noncontributory. SOCIAL HISTORY: Positive for previous smoking. No alcohol use. REVIEW OF SYSTEMS: CONSTITUTIONAL: The patient denies fever, chills or weight loss.: NEUROLOGIC: The patient denies focal weakness or tingling. EYES: The patient denies any visual changes, redness or drainage. ENT: The patient denies earache, nasal drainage, sore throat. CARDIOVASCULAR: The patient denies chest pain, palpitations, diaphoresis. PULMONARY: No cough, shortness of breath. GASTROINTESTINAL: Denies nausea, vomiting, diarrhea or abdominal pain. ORTHOPEDIC: The patient complains of significant pain, swelling, redness, drainage and ulceration, bilateral lower extremities, left greater than right. Others systems in a 14-point review of systems are negative. PHYSICAL EXAMINATION: [address] [place] [address] CONSULTATION Name: ANCA KOEHLER Room #: 363-P [facility]#: [id number] Admission: 09/13/21 Attend Phys: Behzad Reyna DO Discharge: Date of : 58 Report #: [id number] VITAL SIGNS: The patient's vital at this time include temperature 36.6, pulse 63, respiration of 18, blood pressure 125/70. GENERAL: This is a chronically ill-appearing male patient who appears to be in minimal distress. HEENT: Head is normocephalic. NECK: Supple. LUNGS: Diminished. HEART: Regular. ABDOMEN: Soft, bowel sounds present. EXTREMITIES: Lower extremities demonstrate moderate erythema to both lower legs. Large ulcerations on the medial ankles and lower legs, left greater than right with moderate fibrin and some periwound scarring. Minimal drainage or odor is noted at this time. LABORATORY DATA: Sodium 136, potassium 4.1, chloride 101, CO2 of 23, BUN 27, creatinine 1.5, glucose 105, albumin is 3.5. White blood cell count is 9.7 with hemoglobin 12.4. He is positive for COVID. CLINICAL IMPRESSION: 1. Worsening ulcerations, bilateral lower extremities with surrounding cellulitis and underlying pyoderma gangrinosum. 2. Chronic pain and narcotic use. 3. Hypertension. 4. Type 2 diabetes mellitus. 5. History of prior smoking. RECOMMENDATIONS: At this point in time, we will recommend topical Silvadene, morphine cream to the ulcers to help with pain as well as Xeroform, ABD, Kerlix. Antibiotics have been ordered and elevate his legs as much as possible. Dr. Christianson and Dr. De La Paz have discussed the therapeutic considerations. Dr. De La Paz, apparently would strongly like to avoid amputation until he has at least had a little bit longer trial of biologic therapy. We will try to manage pain and get the cellulitis under control. We have discussed the possibility of amputation of either or both of his lower extremities. The patient certainly is aware that the current circumstances are potentially limb threatening. I appreciate being asked to see him in consultation. <ELECTRONICALLY SIGNED> By: Farzad Soria MD 09/18/21 1115 [id number] [id number] Farzad Soria MD /nt
--- NOTE | 2021-09-18 18:45 | NUR ---
PT A&OX4, VSS. WOUND CARE COMPLETED. AWAITING FINAL APPROVAL FROM ID FROM [facility] FOR DISCHARGE HOME WITH .
[2021-09-18 19:19] VITALS: BP 156/94
[2021-09-19 03:16] VITALS: BP 138/98
--- NOTE | 2021-09-19 06:28 | NUR ---
Patient progressed towards outcome goals. Vital signs stable. Discharge plans to home with home health with IV antibiotics. dining services director consulted as patient cannot afford antibiotics. Wound care to lower legs ordered BID but patient only wants it done daily. Fentanylpatch intact right shoulder. Oxycodone requested pretty much every 4 hours by patient. High fall risks but steady pivoting up to BSC.
[2021-09-19 09:04] VITALS: BP 153/96
--- NOTE | 2021-09-19 12:27 | NUR ---
Alternate iv medication options called to [facility] for cost out and they all cost about the same or more than the IV Zosyn. Call placed to the outpt infusion center and faxed order and referral to Dominique for review. She will have registration try to get prior auth and out of pocket cost for a once a day Q24hr dose of IV Ertapenem 1gm. Awaiting their response. Pt anxious to try to go home soon. Still in covid ISO day #7 out of 10.
[2021-09-19 17:07] VITALS: BP 162/103
[2021-09-19 17:23] VITALS: BP 162/103; BP 169/107
--- NOTE | 2021-09-19 18:32 | NUR ---
PATIENT NOT ABLE GO HOME TODAY DUE TO IV MEDS. SLOWLY TOWARDS POC GOALS.
[2021-09-19 18:54] VITALS: BP 183/109
[2021-09-19 23:39] VITALS: BP 121/78
[2021-09-20 03:07] VITALS: BP 144/87
--- NOTE | 2021-09-20 06:36 | NUR ---
ASSUMED PT CARE AT 1900. PT CONTINUES TO HAVE C/O OF PAIN. ADMINISTERED PAIN MEDS PRN AND NOTED PARTIAL RELIEF. IV ABX ADMINISTERED. PT REFUSED HS DRESSING CHANGE HOWEVER BLE DRESSINGS ARE C/D/I. VSS AFEBRILE. PT IS ABLE TO EXPRESS NEEDS AND ALL NEEDS ARE MET AT THIS TIME. PT PROGRESSING SLOWLY TOWARDS POC GOALS.
[2021-09-20 07:30] VITALS: BP 153/96
--- NOTE | 2021-09-20 11:53 | NUR ---
FAUZIA reviewed chart and spoke with nursing and attending physician. Pt remains in Enhanced Isolation due to COVID. Pt is afebrile and on room air. Pt remains on IV abx. FAUZIA spoke with Keesha in Outpatient Infusion this morning, who states they are working on getting prior auth through pt's insurance for outpatient infusion services. Form has been sent to ID's office for signature. Form will be sent to precert once received. Pt is able to come to Outpatient Infusion while still in Isolation period. Pt will need to wear an N95 mask. SW spoke with pt via phone to provide update. SW explained process of obtaining insurance prior auth. Pt verbalized understanding. SW is following to assist as needed with discharge planning.
[2021-09-20 15:29] VITALS: BP 152/96
--- NOTE | 2021-09-20 18:11 | NUR ---
WOUND CARE PER ORDER. PROGRESSING TOWARDS POC GOALS.
[2021-09-20 19:57] VITALS: BP 152/97
[2021-09-21 04:13] VITALS: BP 144/94
--- NOTE | 2021-09-21 05:39 | NUR ---
PROGRESS PT A/O X4. UP AD JIMMY. RATING PAIN A 6 TO 10 TAKING OXYCODONE Q4HRS AND 1 DOSE OF 4 MG MORPHINE IVP GIVEN TO TRY TO GET PAIN IN CONTROL. IV TO OLLIE INTACT IV ANTIBIOTICS ADMINISTERED ORDERED. DRESSING TO BILATERAL LOWER EXTREMETIES C/D/I PT REFUSED 2ND DRSG CHANGE. VOIDNG QS CONTINUE POC.
[2021-09-21 07:15] VITALS: BP 125/87
--- NOTE | 2021-09-21 11:54 | HC ---
[facility] [place] [address] CONSULTATION Name: ANCA KOEHLER Room #: 363-P ADM IN M.R.#: [id number] Admission: 09/13/21 Attend Phys: Behzad Reyna DO Discharge: Date of : 58 Report #: [id number] THIS REPORT FOR: cc: Nitesh York Steven F. DO Deardorff, Valerie A. MD ~ DATE OF SERVICE: 09/14/2021 ORTHOPEDIC CONSULTATION NOTE HISTORY OF PRESENT ILLNESS: The patient is a 61-year-old male who underwent a right transmetatarsal amputation by Dr. Avelino Cook approximately a year ago. He reports healed uneventfully, but then developed in March wound on the plantar surface, but then other wounds on both of the ankle areas. He has been under the care of Dr. Joseph Christianson. He has a history of pyoderma gangrenosum. We have asked to be involved in his case. For his pyoderma gangrenosum, he has also been followed by Dr. Matthew De La Paz with Dermatology. He recently suddenly lost his who was significantly involved in his care. The wound suddenly worsened with more swelling on the left. He was admitted with bilateral lower extremity osteomyelitis. I believe based on the appearance of the wounds as well as radiographs showing periosteal reaction on the right. No radiographic evidence of osteomyelitis on the left from the most recent x-rays. PAST MEDICAL HISTORY: Significant for hypertension and non-insulin dependent diabetes, status post right transmetatarsal amputation. ALLERGIES: BACITRACIN, NEOMYCIN, POLYMYXIN. MEDICATIONS: From the patient's history and physical show oxycodone, meloxicam, lisinopril, terbinafine, linezolid, dapsone, hydroxyzine, pregabalin and metformin. PAST SURGICAL HISTORY: Lithotripsy for kidney stones, skin grafts on both legs for pyoderma granulosum. SOCIAL HISTORY: Lives by himself, but he has his children close by, does not currently smoke. He is on disability. He ambulates with boots. LABORATORY STUDIES: Done on 09/14/2021 show white blood cell count 5.8, hemoglobin 10.6, hematocrit 31.4, platelet count 143. ESR is elevated at 108. Basic metabolic shows an elevated glucose of 153, calcium is low at 8. Total protein and albumin are also low. PHYSICAL EXAMINATION: [address] [address] CONSULTATION Name: ANCA KOEHLER Estela Room #: 363-P [facility]#: [id number] Admission: 09/13/21 Attend Phys: Behzad Reyna DO Discharge: Date of : 58 Report #: [id number] GENERAL: The patient is awake, alert and oriented, interacts appropriately. He is well-developed, well-nourished male. He is very pleasant. He converses well. He has normal affect. He is sitting in his hospital bed. VITAL SIGNS: Most recent vital signs show temperature of 36.8, heart rate 65, respiratory rate 18, blood pressure 176/99, pulse oximetry 98% on room air. EXTREMITIES: Examination of his bilateral lower extremities, they are wrapped, the left has a moderate amount of swelling in the calf. His toes have a purplish type color to them. He has normal sensation. Pictures were seen on the patient's chart of his wounds showing right plantar wound and right and left skin wounds involving a significant portion of the surface. RADIOGRAPHS: AP and lateral of both ankles show on the right, some periosteal reaction over the medial malleolus and left shows soft tissue defect, but no definite periosteal reaction. IMPRESSION AND PLAN: Bilateral lower extremity wounds with complicated history of peripheral vascular disease as well as pyoderma granulosum. I discussed the diagnosis with the patient briefly and I discussed that we will work together as a team with Dr. Medellin to discuss when and if a below-knee amputation of either limb would be appropriate. One of my [facility], partners will follow this weekend. He knows Dr. Cook and so when Dr. Cook is back in town next week, I will discuss with him as well. Thank you very much for allowing me to participate in the care of this patient. <ELECTRONICALLY SIGNED> By: Lita Alcaraz MD 09/21/21 1154 [id number] Lita Alcaraz MD /nt
[2021-09-21 14:25] VITALS: BP 125/87
--- NOTE | 2021-09-21 15:11 | NUR ---
DISCHARGE NOTE: FAUZIA reviewed chart and spoke with nursing and attending physician. Pt remains in Enhanced Isolation due to COVID. Pt is medically stable to discharge home today. SW discussed case with UR, Outpatient Infusion and Prec[facility]. Prior auth is not required to arrange outpatient infusion. Pt is scheduled to begin outpatient infusion at [facility] tomorrow. FAUZIA spoke with pt via phone to provide update and discuss discharge plan. Pt is aware and in agreement with plan. Pt provided with two N95 masks to wear to outpatient infusion until out of isolation. Outpatient wind operations supervisor met with pt to review schedule and instructions for infusion. Contact info for the Outpatient Infusion clinic placed in pt's discharge summary. Pt will have transportation home. Awaiting final discharge orders at this time. SW notified attending physician and ID. Pt will need to follow up with Drs. De La Paz and Sammy in 7-10 days. ID to see pt in the infusion clinic. FAUZIA updated pt's nurse. Pt has PICC line in place. SW to fax final order for IV abx to Outpatient Infusion when available. No additional SW needs identified at this time. SW is available to assist should needs arise.
--- NOTE | 2021-09-21 15:59 | NUR ---
RN ASSUMED PT'S CARE AT 0700AM, PT IS A&OX4, PT IS ON ROOM AIR, PT'S VS ARE STABLE BY THIS TIME, PT IS CONTINUING IV ABX, WOUND CARE AND PAIN MANAGEMENT,PT'S BLE WOUND PAIN HAS CONTROLLED , RN RECEIVED ORDER TO DC PT TO HOME WITH CONTINUING IV ABX IN OUTPATIENT INFUSION CLINIC.
--- NOTE | 2021-09-21 18:32 | NUR ---
PT UNDERSTANDED DC TEACHING WELL , INCLUDING, PT WILL OFF COVID ISOLATION AT 09/23/2021, IV MEDICATIONS AND WOUND CARE , PT FINISHED HIS LAST IV ABX ( NEW ORDER ) AT 1730PM, PT'S FAMILY LOADING SUPERVISOR PT AT 1830PM.
--- NOTE | 2021-09-22 09:16 | NUR ---
FAUZIA faxed ID progress note to outpatient infusion. Spoke with ROSY Rivera to notify of prgress note. Order was not entered or d/c summary was not updated with Ertapenem 1 gm IV daily. Nicole to contact ID if additional info is needed. FAUZIA is available to assist should needs arise.
[2021-09-22] MEDS ORDERED: LYRICA150 MG PO (13:26)
[2021-09-22] MEDS ORDERED: LINEZOLID600 MG PO (13:27)
[2021-09-22] MEDS ORDERED: TERBINAFINE HC250 MG PO (13:28)
== END 2021-09-21 18:28 | disposition home or self-care (01) | DRG 178 ==
LOC: ER 11:58 → 3W 15:39
PROVIDERS: Nurse Practitioner Family; Specialist; ADMIT Pediatrics; ATTEND Pediatrics
PROC: XW033E5 Introduction of Remdesivir Anti-infective into Peripheral Vein, Percutaneous Approach, New Technology Group 5 (ICD-10-PCS; principal; 2021-09-13)
PROC: 02HV33Z Insertion of Infusion Device into Superior Vena Cava, Percutaneous Approach (ICD-10-PCS; principal; 2021-09-13)
DX: U07.1 COVID-19 (principal); N17.9 Acute kidney failure, unspecified; L97.829 Non-pressure chronic ulcer of other part of left lower leg with unspecified severity; L97.819 Non-pressure chronic ulcer of other part of right lower leg with unspecified severity; L03.115 Cellulitis of right lower limb; L03.116 Cellulitis of left lower limb; F11.20 Opioid dependence, uncomplicated; M86.8X8 Other osteomyelitis, other site; E11.52 Type 2 diabetes mellitus with diabetic peripheral angiopathy with gangrene; I96 Gangrene, not elsewhere classified; E44.1 Mild protein-calorie malnutrition; D64.9 Anemia, unspecified; I10 Essential (primary) hypertension; M19.90 Unspecified osteoarthritis, unspecified site; G89.29 Other chronic pain; E11.69 Type 2 diabetes mellitus with other specified complication; Z66 Do not resuscitate; L08.0 Pyoderma; R53.81 Other malaise; Z88.1 Allergy status to other antibiotic agents; Z88.8 Allergy status to other drugs, medicaments and biological substances; Z87.442 Personal history of urinary calculi; Z68.30 Body mass index [BMI] 30.0-30.9, adult
CPT/HCPCS: 10779; 10879; 27000

== ENCOUNTER → 2021-09-22 | Outpatient (CLI) | payer OTHER ==
[~2021-09-22] MED LIST changes: +DAPSONE25 MG PO; +HYDROXYZINE HCL25 M2 PO; +LINEZOLID600 MG PO; +LISINOPRIL10 MG PO; +LYRICA150 MG PO; +TERBINAFINE HC250 MG PO; +TERBINAFINE15 G1 TOP; +[UNRECOGNIZED DRUG - OTHER] TOP
[2021-09-22 13:15] VITALS: BP 97/60
[2021-09-22 13:50] VITALS: BP 97/60
--- NOTE | 2021-09-22 14:58 | NUR ---
PT HERE FOR FIRST OP DOSE OF DAILY ERTAPENEM. BRIAN FROM FAXED OVER DR VIZCARRA'S PROGRESS NOTE FROM HOSPITAL STAY THAT STATES PT IS TO RECEIVE 1 GM ERTAPENEM DAILY FROM OP INFUSION. WILL OBTAIN OFFICIAL ORDER FROM DR VIZCARRA ON SATURDAY. PT ARRIVED FROM REGISTRATION IN STABLE CONDITION, PLEASANT AND AGREEABLE. ALREADY HAD DOUBLE LUMEN PICC IN [facility] FROM HOSPITAL STAY. DRESSING CHANGED YESTERDAY, C/D/I. BOTH LINES FLUSH AND ASPIRATE WELL. PT HAS NO C/O OF PAIN, NAUSEA OR VOMITTING. PT ABLE TO WALK, BUT MOVES SLOWLY WITH MINOR UNSTEADY GAIT. TOLERATED INFUSION WITH NO COMPLICATIONS. PT WILL BE TREATED THIS WEEKEND IN THE ED. INSTRUCTED HIM ON THE PROCESS AND HE STATES HE FEELS COMFORTABLE WITH THAT. SCHEDULED TO RETURN TO US ON SATURDAY FOR INFUSION AND TO SEE DR VIZCARRA. LEFT UNIT IN STABLE CONDITION.
== END ==
LOC: OPONC 12:43
PROVIDERS: ATTEND Specialist
DX: M86.8X6 Other osteomyelitis, lower leg (principal)
CPT/HCPCS: 95000

== ENCOUNTER → 2021-09-23 | Outpatient (CLI) | payer OTHER ==
[2021-09-23 08:20] VITALS: BP 135/73
== END ==
LOC: OPONC 12:00
PROVIDERS: ATTEND Specialist
DX: E11.69 Type 2 diabetes mellitus with other specified complication (principal); M86.8X7 Other osteomyelitis, ankle and foot; E11.52 Type 2 diabetes mellitus with diabetic peripheral angiopathy with gangrene; I96 Gangrene, not elsewhere classified; M19.90 Unspecified osteoarthritis, unspecified site; N20.0 Calculus of kidney; U07.1 COVID-19
CPT/HCPCS: 95000

== ENCOUNTER → 2021-09-24 | Outpatient (CLI) | payer OTHER ==
[2021-09-24 08:43] VITALS: BP 137/75
== END ==
LOC: OPONC 12:00
PROVIDERS: ATTEND Specialist
DX: E11.69 Type 2 diabetes mellitus with other specified complication (principal); M86.8X7 Other osteomyelitis, ankle and foot; E11.52 Type 2 diabetes mellitus with diabetic peripheral angiopathy with gangrene; I96 Gangrene, not elsewhere classified; M19.90 Unspecified osteoarthritis, unspecified site; N20.0 Calculus of kidney; U07.1 COVID-19
CPT/HCPCS: 95000

== ENCOUNTER → 2021-09-25 | Outpatient (CLI) | payer OTHER ==
[2021-09-25 13:00] VITALS: BP 145/78
--- NOTE | 2021-09-25 14:52 | NUR ---
PT HERE FOR DAILY ERTAPENEM INFUSION. STATES HE HAD NO ISSUES WITH GETTING HIS INFUSIONS OVER THE WEEKEND IN THE ED. DENIES ANY CURRENT PAIN, BUT STATES HE HAS A LOT OF PAIN WHEN CHANGING HIS DRESSINGS EVERY NIGHT. REPORTS MILD NAUSEA AFTER HIS INFUSIONS, BUT NO VOMITTING OR DIARRHEA. PICC LINE INTACT, FLUSHES AND ASPIRATES WELL. DRESSING RE-INFORCED WITH TAPE ON ONE CORNER. PT TOLERATED INFUSION WITH NO COMPLICATIONS. SAW DR VIZCARRA IN CLINIC. PLANS TO TAKE PICTURES OF HIS WOUND WHEN HE CHANGES THE DRESSING BEFORE HIS NEXT VISIT WITH DR VIZCARRA BECAUSE IT IS TOO DIFFICULT AND PAINFUL TO TAKE IT OFF WHEN HERE. DR VIZCARRA WROTE ORDER TO CONTINUE CURRENT PLAN. PT LEFT UNIT IN STABLE CONDITION. SCHEDULED TO RETURN TOMORROW.
== END ==
LOC: OPONC 13:10
PROVIDERS: ATTEND Specialist
DX: E11.69 Type 2 diabetes mellitus with other specified complication (principal); M86.8X7 Other osteomyelitis, ankle and foot; E11.52 Type 2 diabetes mellitus with diabetic peripheral angiopathy with gangrene; I96 Gangrene, not elsewhere classified; M19.90 Unspecified osteoarthritis, unspecified site; N20.0 Calculus of kidney; U07.1 COVID-19
CPT/HCPCS: 95000